=== PATIENT | female | born 1950 | race Caucasian/White ===

== ENCOUNTER 2016-04-02 13:22 | Emergency (ER) | payer MEDICARE ==
[~2016-04-02] VITALS: Ht 160 cm; Wt 114.0 kg
[~2016-04-02 13:22] MED LIST: FLUO20TA20 PO; LISI-357 PO; TYLE650T4 PO; WARF-20 PO; WARF1TAB PO; ZOCO10TA PO
[2016-04-02 13:26] VITALS: BP 151/84; PULSE 84; RESP 20; TEMP 98.6; O2SAT 95
[2016-04-02] MEDS ORDERED: FLUO1TAB3 PO (13:44)
[2016-04-02] MEDS ORDERED: SIMV10TA PO (13:44)
[2016-04-02] MEDS ORDERED: WARF-58 PO (13:44)
[2016-04-02] MEDS ORDERED: LISI-519 PO (13:44)
[2016-04-02] MEDS ORDERED: SODIUM CHLOR 0.9% 1000 ML INJ 1,000 ML IV ONE (14:15)
[2016-04-02] MEDS ORDERED: SODIUM CHLORIDE 0.9% FLUSH 5 ML FLUSH IVF PRN (14:15)
--- NOTE | 2016-04-02 14:18 | PD ---
HPI Chief Complaint: Cold / Flu Symptoms Time Seen by Provider: 13:59 Travel History International Travel<30 days: No Contact w/Intl Traveler<30days: No Traveled to known affect area: No History of Present Illness HPI Ms. Marie is a pleasant 66 year old female who presents to ER with c/o of cough/ congestion and overall "not feeling well" for the past week (5 days ago). Patient reports that all her symptoms began last week after her her passed. Reports that she had alot of family members come in from out of town for the [facility] service and reports that some of her family members were sick. Reports that alot of her family member had cough/congestion and patient thinks that someone must have gotten her sick. Reports no fever/chills. Reports no chest pain or sob. Reports that she has been coughing - reports cough as nonproductive. Reports "i just feel like my chest is congested." PFSH Past Medical History Arthritis: Yes Asthma: No Blood Disorders: No Anxiety: No Depression: Yes Heart Rhythm Problems: No Cancer: Yes (MELANOMA 2014, ENDOMETRIAL CANCER, COMPLETE HYSTERECTOMY 2008) Cardiovascular Problems: No High Cholesterol: No Chemotherapy: No Chest Pain: No Congestive Heart Failure: No COPD: No Cerebrovascular Accident: No Diabetes: No Diminished Hearing: No Endocrine: No Gastrointestinal Disorders: Yes GERD: No Glaucoma: No Genitourinary: Yes (HX OF UTI'S) Headaches: No Hepatitis: No Hiatal Hernia: Yes (HX OF, CAUSES NO PROBLEMS) Hypertension: No Immune Disorder: No Implanted Vascular Access Dvce: No Kidney Stones: No Medical other: Yes (LESIONS REMOVED FROM VULVA 2014) Musculoskeletal: Yes (ARTHRITIS) Neurologic: Yes (HX OF VERTIGO) Psychiatric: No Reproductive: No Respiratory: Yes (HX OF MASSIVE PULMONARY EMBOLISM 2000, RECURRED WHEN OFF COUMADIN 2013) Migraines: No Myocardial Infarction: No Radiation Therapy: No Renal Failure: No Seizures: No Sleep Apnea: No Thyroid Disease: Yes (HX OF HYPOTHYROID, NOT CURRENT) Ulcer: No Menopausal: Yes Dilation and Curettage (D&C): Yes (2001 2008) Past Surgical History Abdominal Surgery: Yes (UMBILICAL HERNIA REPAIR 1999) AICD: No Appendectomy: No Arteriovenous Shunt: No Body Medical Devices: PESARY Cardiac Surgery: No Cholecystectomy: No Ear Surgery: No Endocrine Surgery: No Eye Surgery: Yes (CATARACTS REMOVED 2013) Genitourinary Surgery: Yes (LESIONS REMOVED FROM VULVA MAR 2014) Gynecologic Surgery: Yes (TOTAL HYSTERECTOMY, D & C 2001; D&C 07/11) Hysterectomy: Yes Insulin Pump: No Joint Replacement: Yes (L HIP) Neurologic Surgery: No Oral Surgery: No Pacemaker: No Thoracic Surgery: No Other Surgery: Yes Social History Alcohol Use: No Tobacco Use: No Substance Use: No Allergies-Medications (Allergen,Severity, Reaction): Coded Allergies: No Known Allergies (Verified , 02/03/15) Reported Meds & Prescriptions Reported Meds & Active Scripts Active Reported Warfarin 3 Mg Tab 3.5 Mg PO DAILY Simvastatin 10 Mg Tab 10 Mg PO DAILY Lisinopril 5 Mg Tab 5 Mg PO DAILY Fluoxetine (Fluoxetine HCl) 20 Mg Tab 20 Mg PO DAILY Review of Systems General / Constitutional: No: Fever, Chills Eyes: No: Visual changes HENT: Positive: Rhinorrhea, No: Headaches, Sore Throat Cardiovascular: No: Chest Pain or Discomfort Respiratory: Positive: Cough, No: Shortness of Breath Gastrointestinal: No: Nausea, Vomiting, Diarrhea, Abdominal Pain Genitourinary: No: Dysuria Musculoskeletal: No: Pain Skin: No Rash Neurologic: No: Weakness Psychiatric: No: Depression Endocrine: No: Polydipsia Hematologic/Lymphatic: No: Easy Bruising Physical Exam Narrative GENERAL: nad, nontoxic SKIN: Warm and dry. HEAD: Atraumatic. Normocephalic. EYES: Pupils equal and round. . No injection or drainage. ENT: No nasal bleeding or discharge. Mucous membranes pink and moist. NECK: Trachea midline. No JVD. CARDIOVASCULAR: Regular rate and rhythm. No murmur appreciated. RESPIRATORY: No accessory muscle use. Clear to auscultation. Breath sounds equal bilaterally. GASTROINTESTINAL: Abdomen soft, non-tender, nondistended. Hepatic and splenic margins not palpable. MUSCULOSKELETAL: No obvious deformities. No clubbing. No cyanosis. No edema. NEUROLOGICAL: Awake and alert. Motor grossly within normal limits. Normal speech. PSYCHIATRIC: Appropriate mood and affect; insight and judgment normal. Data Data Last Documented VS Vital Signs Date Time Temp Pulse Resp B/P Pulse Ox O2 Delivery O2 Flow Rate FiO2 04/02/16 13:26 98.6 84 20 151/84 95 Orders Electrocardiogram (04/02/16 14:15) Complete Blood Count With Diff (04/02/16 14:15) Comprehensive Metabolic Panel (04/02/16 14:15) Influenzae A/B Antigen (04/02/16 14:15) Urinalysis - C+S If Indicated (04/02/16 14:15) Blood Culture (04/02/16 14:15) Chest, Pa & Lat (04/02/16 14:15) Ecg Monitoring (04/02/16 14:15) Iv Access Insert/Monitor (04/02/16 14:15) Oximetry (04/02/16 14:15) Sodium Chloride 0.9% Flush (Ns Flush) (04/02/16 14:15) Sodium Chlor 0.9% 1000 Ml Inj (Ns 1000 M (04/02/16 14:15) Prothrombin Time / Inr (Pt) (04/02/16 14:51) Act Partial Throm Time (Ptt) (04/02/16 14:51) Urine Culture (04/02/16 14:30) Labs Laboratory Tests Test 04/02/16 04/02/16 14:30 14:50 Urine Collection Type CLEAN CATCH Urine Color YELLOW Urine Turbidity CLEAR Urine pH 6.0 Urine Specific [place] 1.025 Urine Protein 30 mg/dL Urine Glucose (UA) NEG mg/dL Urine Ketones NEG mg/dL Urine Occult Blood SMALL Urine Nitrite POS Urine Bilirubin NEG Urine Leukocyte Esterase NEG Urine RBC 0-3 /hpf Urine WBC 9-14 /hpf Urine Squamous Epithelial 0-5 /hpf Cells Urine Bacteria FEW /hpf Microscopic Urinalysis Comment CULTURE INDICATED White Blood Count 3.8 TH/MM3 Red Blood Count 4.50 MIL/MM3 Hemoglobin 13.2 GM/DL Hematocrit 38.7 % Mean Corpuscular Volume 85.9 FL Mean Corpuscular Hemoglobin 29.3 PG Mean Corpuscular Hemoglobin 34.2 % Concent Red Cell Distribution Width 13.6 % Platelet Count 249 TH/MM3 Mean Platelet Volume 7.4 FL Neutrophils (%) (Auto) 40.7 % Lymphocytes (%) (Auto) 44.3 % Monocytes (%) (Auto) 13.0 % Eosinophils (%) (Auto) 0.6 % Basophils (%) (Auto) 1.4 % Neutrophils # (Auto) 1.5 TH/MM3 Lymphocytes # (Auto) 1.7 TH/MM3 Monocytes # (Auto) 0.5 TH/MM3 Eosinophils # (Auto) 0.0 TH/MM3 Basophils # (Auto) 0.1 TH/MM3 CBC Comment DIFF FINAL Differential Comment Prothrombin Time 20.7 SEC Prothromb Time International 1.8 RATIO Ratio Activated Partial 34.2 SEC Thromboplast Time Sodium Level 143 MEQ/L Potassium Level 3.9 MEQ/L Chloride Level 108 MEQ/L Carbon Dioxide Level 27.6 MEQ/L Anion Gap 7 MEQ/L Blood Urea Nitrogen 18 MG/DL Creatinine 0.68 MG/DL Estimat Glomerular Filtration 86 ML/MIN Rate Random Glucose 91 MG/DL Calcium Level 8.4 MG/DL Total Bilirubin 0.3 MG/DL Aspartate Amino Transf 34 U/L (AST/SGOT) Alanine Aminotransferase 18 U/L (ALT/SGPT) Alkaline Phosphatase 89 U/L Total Protein 7.2 GM/DL Albumin 3.1 GM/DL [facility] Medical Decision Making Medical Screen Exam Complete: Yes Emergency Medical Condition: Yes Interpretation(s) EKG that 1441: Normal sinus rhythm at 77 bpm, QT/QTc 402/431, no acute ST-T wave changes Differential Diagnosis Pneumonia, influenza, electrolyte abnormality, viral syndrome, acute bronchitis Narrative Course Patient is a 66-year-old female who presents to emergency room with complaints of not feeling well for the past 5 days. She reports that she has had increased cough and congestion with a nonproductive cough for the past 5 days. Patient with no fevers or chills. Patient denies chest pain or shortness of breath. Patient reports that she has been around sick family members as her last week. Reports "I probably got sick from them." Patient with no recent travels/trips. NO other c/o. ekg ordered iv placed, cbc, bmp, ua, influenza and blood cultures ordered. will continue to monitor patient Chest x-ray: Moderate stable degenerative changes in thoracic spine, no evidence of mass, infiltrate or effusion. UA positive for nitrites, 9-14 white blood cells, few bacteria - urine culture sent. We'll give patient a dose of Rocephin for treatment of UTI. Influenza A positive cbc: wbc: 3.8 hct: 38.7 hgb: 13.2 platelets: 249 cmp: sodium 143 potassium 3.9 chloride: 108 carbon dioxide: 27.6 bun: 18 cr: 0.68 Patient re-evaluated patient feeling much better. pt will follow up with all cultures from today pt will follow up with pcp and will return to ER as needed. pt's INR is 1.8 which is subtherapeutic, she will call her pcp about subtherapeutic INR Diagnosis Primary Impression: Influenza A Additional Impressions: Subtherapeutic international normalized ratio (INR) UTI (urinary tract infection) Qualified Code: N30.00 - Acute cystitis without hematuria Patient Instructions: General Instructions Additional Instructions: Please make sure you drink plenty of fluids Please follow-up with all cultures from today Please call your primary care doctor for earliest follow-up appointment. Please let your primary care doctor know that you have a subtherapeutic INR. Your INR today was 1.8 and this is NOT therapeutic Please return to the emergency room if symptoms progress or worsen. Med/Other Pt SpecificInfo: Prescription(s) given Scripts Ibuprofen 600 Mg [id number] Mg PO Q6H PRN (Pain/Inflammation) #40 TAB Ref 0 Prov:Marion Schwarz DO 04/02/16 Promethazine-Codeine Liq 6.25-10 Mg/5 Ml Syrp5 Ml PO Q6H PRN (COUGH AND/OR COLD SYMPTOMS) 10 Days Ref 0 Prov:Marion Schwarz DO 04/02/16 Benzonatate (Tessalon Perles)100 Mg Gbw720 Mg PO TID PRN (COUGH) #30 CAP Ref 0 Prov:Marion Schwarz DO 04/02/16 Nitrofurantoin Monohydrate Macrocrystals (Macrobid)100 Mg Bns487 Mg PO BID 10 Days Ref 0 Prov:Marion Schwarz DO 04/02/16 Disposition: 01 DISCHARGE HOME Condition: Stable Marion Schwarz DO Apr 02, 2016 14:18
--- NOTE | 2016-04-02 14:45 | RADHPO ---
EXAM DATE/TIME: 04/02/2016 14:31 [facility] COMPARISON: CHEST PA & LAT, March 12, 2014, 14:22. INDICATIONS : Cough, chest congestion MEDICAL HISTORY : None. SURGICAL HISTORY : None. ENCOUNTER: Initial ACUITY: 4 - 6 days PAIN SCORE: 0/10 LOCATION: Bilateral chest FINDINGS: PA and lateral views of the chest demonstrate the lungs to be symmetrically aerated without evidence of mass, infiltrate or effusion. The cardiomediastinal contours are unremarkable. Osseous structure s are intact. Moderate stable degenerative changes of the thoracic spine. CONCLUSION: No acute disease. No significant change has occurred. Mauricio Dwyer MD on April 02, 2016 at 14:43 Board Certified Radiologist. This report was verified electronically.
[2016-04-02 14:46] LABS: BLOOD, URINE SMALL (NEG); GLUCOSE,URINE NEG (NEG); KETONE, URINE NEG (NEG)
[2016-04-02 14:47] LABS: NITRITE,URINE POS (NEG)
[2016-04-02 14:48] LABS: METHOD OF COLLECTION CLEAN CATCH; URINE COLOR YELLOW (YELLW/STRAW)
[2016-04-02 14:52] LABS: RBC, URINE 0-3 /hpf (0-3)
[2016-04-02 14:53] LABS: BACTERIA, URINE FEW /hpf; COMMENT (UR) CULTURE INDICATED; CULTURE IF INDICATED CULTURE INDICATED; SQUAMOUS EPITHELIAL CELL URINE 0-5 /hpf (0-5)
[2016-04-02 15:09] LABS: AUTOMATED NEUTROPHIL # 1.5 TH/MM3 (1.8-7.7); BASOPHIL # 0.1 TH/MM3 (0-0.2); BASOPHIL % 1.4 % (0.0-2.0); EOSINOPHIL % 0.6 % (0.0-4.0); HEMATOCRIT 38.7 % (35.0-46.0); HEMO FLAGS DIFF FINAL; LYMPH % 44.3 % (9.0-44.0); LYMPHOCYTE # 1.7 TH/MM3 (1.0-4.8); MEAN CELL VOLUME 85.9 FL (80.0-100.0); MEAN CORPUSCULAR HEMOGLOBIN 29.3 PG (27.0-34.0); MEAN CORPUSCULAR HGB CONC 34.2 % (32.0-36.0); NEUT % 40.7 % (16.0-70.0); PLATELET COUNT 249 TH/MM3 (150-450); RED CELL DISTRIBUTION WIDTH 13.6 % (11.6-17.2); WHITE BLOOD COUNT 3.8 TH/MM3 (4.0-11.0)
[2016-04-02 15:16] LABS: CHLORIDE 108 MEQ/L (98-107); POTASSIUM 3.9 MEQ/L (3.5-5.1); SODIUM (NA) 143 MEQ/L (136-145)
[2016-04-02 15:21] LABS: ANION GAP 7 MEQ/L (5-15); APTT (PATIENT) 34.2 SEC (24.3-30.1); BICARBONATE 27.6 MEQ/L (21.0-32.0); BLOOD UREA NITROGEN 18 MG/DL (7-18); INTERNATIONAL NORMALIZED RATIO 1.8 RATIO; PROTHROMBIN TIME - PATIENT 20.7 SEC (9.8-11.6)
[2016-04-02 15:24] LABS: ALT (GPT) 18 U/L (10-53); AST (GOT) 34 U/L (15-37)
[2016-04-02 15:25] LABS: GLOMERULAR FILTRATION RATE 86 ML/MIN (>89)
[2016-04-02 15:26] LABS: TOTAL BILIRUBIN ADULT 0.3 MG/DL (0.2-1.0)
[2016-04-02 15:27] LABS: ALKALINE PHOSPHATASE 89 U/L (45-117)
[2016-04-02] MEDS ORDERED: IBUP-232 PO (15:45)
[2016-04-02] MEDS ORDERED: BENZ100 PO (15:45)
[2016-04-02] MEDS ORDERED: PROM6.256 PO (15:45)
[2016-04-02] MEDS ORDERED: MACR100C2 PO (15:45)
[2016-04-02 16:05] VITALS: BP 124/66; PULSE 74; RESP 18; O2SAT 94
--- NOTE | 2016-04-02 17:55 | EKG ---
Date Performed: 04/02/2016 Time Performed: 14:41:10 PTAGE: 66 years EKG: Sinus rhythm Normal ECG PREVIOUS TRACING : 03/12/2014 13.38 No significant change from previous tracing noted. DOCTOR: Norris Vargas Interpretating Date/Time 04/02/2016 17:53:20
== END 2016-04-02 17:05 | disposition home or self-care (01) ==
LOC: PHED 13:22
DX: J09.X2 Influenza due to identified novel influenza A virus with other respiratory manifestations (principal); N30.00 Acute cystitis without hematuria; B96.1 Klebsiella pneumoniae [K. pneumoniae] as the cause of diseases classified elsewhere; Z79.01 Long term (current) use of anticoagulants; Z86.711 Personal history of pulmonary embolism; Z85.42 Personal history of malignant neoplasm of other parts of uterus; Z85.820 Personal history of malignant melanoma of skin; Z79.899 Other long term (current) drug therapy
CPT/HCPCS: 71020; 80053; 81001; 85025; 85610; 85730; 87040; 87077; 87086; 87186; 87804; 93005; 96360; 99284; J7030

== ENCOUNTER → 2017-07-06 | Outpatient (CLI) | payer MEDICARE ==
[~2017-07-06] MED LIST changes: +BENZ100 PO; +CARD180C5 PO; +COUM4TAB PO; +ENOX100P SQ; +FLUO1TAB3 PO; -FLUO20TA20 PO; +IBUP-232 PO; -LISI-357 PO; +LISI-519 PO; +MACR100C2 PO; +MAPA500T PO; +METF1000 PO; +NP T30TA PO; +PROM6.256 PO; +SIMV10TA PO; -TYLE650T4 PO; -WARF-20 PO; +WARF-58 PO; -WARF1TAB PO; -ZOCO10TA PO
[2017-07-06 11:10] LABS: HEMATOCRIT 38.3 % (35.0-46.0); MEAN CELL VOLUME 86.3 FL (80.0-100.0); MEAN CORPUSCULAR HEMOGLOBIN 29.2 PG (27.0-34.0); MEAN CORPUSCULAR HGB CONC 33.9 % (32.0-36.0); MEAN PLATELET VOLUME 7.3 FL (7.0-11.0); PLATELET COUNT 332 TH/MM3 (150-450); RED BLOOD COUNT 4.43 MIL/MM3 (4.00-5.30); WHITE BLOOD COUNT 7.1 TH/MM3 (4.0-11.0)
[2017-07-06 11:24] LABS: PROTHROMBIN TIME - PATIENT 20.6 SEC (9.8-11.6)
[2017-07-06 11:34] LABS: BICARBONATE 26.5 MEQ/L (21.0-32.0); CALCIUM 9.1 MG/DL (8.5-10.1); CREATININE 0.67 MG/DL (0.50-1.00)
--- NOTE | 2017-07-06 18:44 | EKG ---
Date Performed: 07/06/2017 Time Performed: 10:53:23 PTAGE: 67 years EKG: Sinus rhythm NORMAL ECG PREVIOUS TRACING : 04/02/2016 14.41 DOCTOR: Juanito Campos Interpretating Date/Time 07/06/2017 16:39:27
== END ==
LOC: CPRE 10:24
PROVIDERS: ATTEND Internal Medicine
DX: Z01.810 Encounter for preprocedural cardiovascular examination (principal); Z01.812 Encounter for preprocedural laboratory examination; R91.1 Solitary pulmonary nodule
CPT/HCPCS: 36415; 80048; 85027; 85610; 85730; 93005

== ENCOUNTER → 2017-07-10 | Outpatient (CLI) | payer MEDICARE ==
[~2017-07-10] MED LIST changes: -BENZ100 PO; -IBUP-232 PO; -MACR100C2 PO; -PROM6.256 PO
[2017-07-10 11:52] LABS: INTERNATIONAL NORMALIZED RATIO 1.1 RATIO; PROTHROMBIN TIME - PATIENT 11.2 SEC (9.8-11.6)
== END ==
LOC: CLAB 11:19
PROVIDERS: ATTEND Internal Medicine
DX: R91.1 Solitary pulmonary nodule (principal)
CPT/HCPCS: 36415; 85610; 85730

== ENCOUNTER 2017-07-17 10:40 | Inpatient (IN) | payer MEDICARE ==
--- NOTE | 2017-07-05 08:28 | MB ---
cc: Leonor Ireland MD,Kyler Cowart MD, DO DATE: 07/10/2017 HISTORY OF PRESENT ILLNESS: Ms. Marie is a 67-year-old white female with a history of melanoma on her left arm in 2014. She had no other associated therapy but has been monitored carefully by Dr. Mathews. Recently has been feeling a little bit of discomfort in her anterior chest on the right, a generalized fatigue, loss of appetite and about a 5- to 7-pound weight loss. She was also complaining of some instability of gait and tremulousness, although no headache. She had a CT of her head, which was reported as negative by the patient--I do not have that actual report and then a CT of her chest which revealed multiple bilateral pulmonary nodules, the largest was about 1 cm, and in addition to that, she had bulky right hilar adenopathy characteristic of metastatic disease. She has had a minimal cough, no purulent sputum, no hemoptysis. Not particularly short of breath. She was a former smoker of about 20 pack-years; quit smoking though in her 40's thirty years ago. She has also had a history of uterine cancer treated by hysterectomy in 2007 and a vulvar cancer in 2015, also treated surgically with no associated chemotherapy or radiation. She had a pulmonary embolism and a right lower extremity DVT in 2000. She was treated for about 6 months with anticoagulants. She did very well with no recurrence until 2013 when she developed a DVT again in the right leg after a colonoscopy. She has been on warfarin since then with no recurrence. ADDITIONAL PAST HISTORY: Hypothyroidism, type 2 diabetes, hernia repair. No cardiovascular history. No prior history of COPD, emphysema or asthma. ALLERGIES: NONE KNOWN. MEDICATIONS: She has been on Cipro recently for a UTI. She is on lisinopril, simvastatin, Prozac, metformin, warfarin and a thyroid replacement. FAMILY HISTORY: Father of pneumonia in his 80s. Mother had a heart attack at 77. Lost a sister of unclear etiology, possible pulmonary embolism. Another sister alive at 77 and a son who is in good health. SOCIAL HISTORY: She is for 1 year. Ran a nursery school for many years, now retired. Smoking noted. No alcohol use. She has 2 dogs at home. Lives alone, manages her own affairs. REVIEW OF SYSTEMS: Weight is down about 5 pounds. She has had cataracts removed. No anginal chest pain or significant chronic edema. Appetite has been poor. No significant musculoskeletal complaints. PHYSICAL EXAMINATION: VITAL SIGNS: Blood pressure 130/70, pulse 87, temperature 98, RR 18, saturation 96% on room air. HEENT: Sclerae are anicteric. Pharynx is clear. NECK: Neck veins are flat. No adenopathy in the neck or supraclavicular region. CHEST: Clear. No wheezes, rales or congestion. HEART: Regular rhythm. No harsh murmur. ABDOMEN: Obese but soft. No pitting edema or cyanosis. Scan is reviewed with Ellie Marie and I have pointed out the areas of lymph node enlargement. I have suggested she proceed with a diagnostic bronchoscopy with ultrasound guidance to sample these lymph nodes. The small nodules within the lung are probably not accessible. We have reviewed the procedure in simple terms; discussed potential for complications including, although not limited to, anesthetic risks, bleeding or pneumothorax. We have also discussed the possibility that the procedure will not provide a definitive diagnosis. She is agreeable to proceed. We are scheduling this as an outpatient and I will hold her Coumadin prior to the procedure with appropriate laboratories. Further diagnostic and/or therapeutic intervention will depend on the results of this initial diagnostic study. R. Milad Ireland MD RSW/AMALIA/ , 12:54 PM , 01:22 PM
[~2017-07-17] VITALS: Ht 160 cm; Wt 106.1 kg
[~2017-07-17 10:40] MED LIST changes: -CARD180C5 PO; -COUM4TAB PO
[2017-07-17] MEDS ORDERED: DO NOT ADM ANY ANTICOAGULANT DRUGS PRN ×2 (11:30→17:00)
[2017-07-17] MEDS ORDERED: METOPROLOL TARTRATE 25 MG TAB PO PRN (11:30)
[2017-07-17] MEDS ORDERED: SODIUM CHLORID 0.9% 500 ML IV PRN (11:30)
[2017-07-17] MEDS ORDERED: POVIDONE IODINE 5% (ANTISEPSIS KIT) 4 APPLICATIONS EACH NARE PRN (11:30)
[2017-07-17] MEDS ORDERED: CHLORHEXIDINE GLUCONATE 2 % 1 PACK (2 CLOTHS) TOPICAL PRN (11:30)
[2017-07-17] MEDS ORDERED: LACTATED RINGER'S 1000 ML IV PRN (11:30)
[2017-07-17] MEDS ORDERED: INSULIN HUMAN REGULAR 1,000 UNITS/10 ML VIAL SQ PRN (11:30)
[2017-07-17] MEDS ORDERED: RESP: LIDOCAINE HCL 4% PF 5 ML NEB ONE (13:05)
[2017-07-17] MEDS ORDERED: RESP: ALBUTEROL CONC 2.5 MG/0.5 ML NEB ONE (13:05)
[2017-07-17] MEDS ORDERED: FAMOTIDINE 20 MG/2 ML VIAL ONE (13:59)
[2017-07-17] MEDS ORDERED: SUGAMMADEX SODIUM 200 MG/2 ML VIAL IV PUSH ONE (14:57)
[2017-07-17] MEDS ORDERED: EPINEPHrine HCL (1:1000) 1 MG/ML VIAL E-TRACHE ONE (15:45)
[2017-07-17] MEDS ORDERED: RESP: IPRATROPIUM 0.5 MG/2.5 ML NEB NEB PRN ×2 (16:00→16:45)
[2017-07-17] MEDS ORDERED: *LABETALOL HCL 100 MG/20 ML VIAL PERIprocedural Use ONLY ONE (16:17)
[2017-07-17] MEDS ORDERED: *PROMETHAZINE 25 MG/ML VIAL PERIprocedural use ONLY ONE (16:18)
--- NOTE | 2017-07-17 16:40 | MR ---
cc: Leonor Ireland MD DATE: 07/17/2017 PROCEDURE PERFORMED: Bronchoscopy. INDICATIONS FOR PROCEDURE: Mediastinal adenopathy with a history of melanoma. After informed consent was obtained, the patient underwent diagnostic bronchoscopy with general anesthesia. Initial examination of the airways revealed a normal mid to lower trachea. Examination of the left main stem bronchus, left upper and lower lobes was normal. Examination of the right main stem bronchus was normal down to the takeoff of the right upper lobe, but then there was some narrowing from extrinsic compression at that point. The right middle lobe was patent. Further examination in the right lower lobe, medial basilar segment revealed what appeared to be an endobronchial tumor extruding into the airway. This area was washed extensively and submitted for cytology and culture. Needle aspiration was then obtained from the lesion twice and there was fairly brisk bleeding after that. The area was lavaged with cold saline and a dilute adrenaline solution and the bleeding was controlled. Following this, utilizing endobronchial ultrasound, the mediastinal mass was clearly identified. Multiple needle aspirations were obtained for cytology. Minimal bleeding noted. At the end of the procedure, there was no active bleeding. Specimens submitted from the station VII lymph node region where the mass was identified on CT for cytology. Washings and 2 needle aspirations of the right lower lobe were also submitted for cytology. Cultures were also obtained. She tolerated the procedure well. Near the end of the procedure. She developed a short 1 or 2 minute run of atrial fibrillation. O2 saturations and blood pressure was normal. Post-extubation again with normal saturations. She had a rapid atrial arrhythmia with a heart rate of about 160-180. She received esmolol from the anesthesiologist and the rate was controlled. She converted to sinus. A chest x-ray and EKG are ordered for the recovery area. Depending on the results of these, we will determine whether she can be discharged this evening or has to remain overnight for observation. I also spoke to the foundry technician automobile club information clerk. Recommended that we monitor her here in Recovery and if the rhythm is stable, administer 120 mg of slow-release diltiazem, place her on that daily and consider followup for evaluation of arrhythmia. Further diagnostic and/or therapeutic intervention will depend on her period of recovery. R. MD LITTLE Wilkins/TRINH , 04:08 PM , 04:39 PM
[2017-07-17] MEDS ORDERED: *ONDANSETRON 4 MG VIAL PERIprocedural Use ONLY ONE (16:44)
[2017-07-17] MEDS ORDERED: METOPROLOL TARTRATE 5 MG/5 ML VIAL IV PUSH ONE ×2 (16:45→17:30)
--- NOTE | 2017-07-17 16:48 | RADRPT ---
EXAM DATE/TIME: 07/17/2017 16:16 [facility] COMPARISON: No previous studies available for comparison. INDICATIONS : Right post bronch, right lung biopsy. MEDICAL HISTORY : None. SURGICAL HISTORY : None. ENCOUNTER: Initial ACUITY: 1 day PAIN SCORE: 0/10 LOCATION: Bilateral chest FINDINGS: There is an approximate 6 cm right perihilar mass with mild interstitial and alveolar opacities in th e right lower lobe. No significant pneumothorax. Cardiac size within normal limits. Bony thorax is in tact. CONCLUSION: 1. No significant pneumothorax status post bronchoscopy. 2. Approximately 6 cm right perihilar lung mass. Mikey Avila MD on July 17, 2017 at 16:44 Board Certified Radiologist. This report was verified electronically.
[2017-07-17] MEDS ORDERED: METOPROLOL TARTRATE 5 MG/5 ML VIAL ONE (16:52)
[2017-07-17] MEDS ORDERED: METOPROLOL TARTRATE 5 MG/5 ML VIAL IV PUSH PRN (17:30)
[2017-07-17] MEDS ORDERED: DILTIAZEM HCL 60 MG TAB PO ONE (17:30)
[2017-07-17] MEDS ORDERED: BISACODYL 10 MG SUPP RECTAL PRN (17:45)
[2017-07-17] MEDS ORDERED: SENNOSIDES 8.6 MG TAB PO PRN (17:45)
[2017-07-17] MEDS ORDERED: NALOXONE HCL 0.4 MG/ML AMP IV PUSH PRN (17:45)
[2017-07-17] MEDS ORDERED: ONDANSETRON HCL 4 MG/2 ML VIAL IVP PRN (17:45)
[2017-07-17] MEDS ORDERED: ACETAMINOPHEN 325 MG TAB PO PRN (17:45)
[2017-07-17] MEDS ORDERED: SODIUM CHLORID 0.9% 500 ML INJ 500 ML IV ONE (17:45)
[2017-07-17] MEDS ORDERED: MAGNESIUM HYDROXIDE SUSP 30 ML CUP PO PRN (17:45)
[2017-07-17] MEDS ORDERED: LACTULOSE SYRUP 20 GM/30 ML CUP PO PRN (17:45)
--- NOTE | 2017-07-17 17:55 | HHI.HP ---
[facility] Service [facility]ists Primary Care Physician Kyler Sheldon, Admission Diagnosis Atrial fibrillation with RVR Diagnoses: (1) Atrial fibrillation with RVR (2) Diabetes mellitus (3) Hypothyroidism (4) History of pulmonary embolus (PE) Chief Complaint: Lung mass Travel History International Travel<30 Days: No Contact w/Intl Traveler <30 Da: No History of Present Illness The patient is a 67-year-old female who was brought to the hospital for bronchoscopy, done by Dr. Ireland today. Patient developed atrial fibrillation with RVR during the procedure. She was given esmolol and return to sinus rhythm. She [facility] with [facility]. Hospitalist was requested to admit the patient. Dr. Britt, cardiology, was also contacted by the insolvency practitioner. The patient is seen in PACU. She denies chest pain. Does have some shortness of breath, which she states has been going on for the past week or so. She reports nausea, but no vomiting. Review of Systems Constitutional: DENIES: Fever, Chills, Night Sweats Eyes: DENIES: Blurred vision, Vision loss Ears, nose, mouth, throat: DENIES: Hearing loss Respiratory: COMPLAINS OF: Shortness of breath, DENIES: Cough, Wheezing, Sputum production Cardiovascular: DENIES: Chest pain, Palpitations, Dyspnea on Exertion, Lower Extremity Edema Gastrointestinal: COMPLAINS OF: Nausea, DENIES: Abdominal pain, Constipation, Diarrhea, Vomiting Genitourinary: DENIES: Urinary frequency, Urinary incontinence, Urgency, Hematuria, Dysuria, Nocturia Musculoskeletal: DENIES: Joint pain, Muscle aches Integumentary: DENIES: Pruritus, Rash Hematologic/lymphatic: DENIES: Bruising Neurologic: DENIES: Headache Past Family Social History Past Medical History Diabetes mellitus Hypothyroidism History of PE History of melanoma Past Surgical History Hysterectomy Surgical excision of vulvar cancer Reported Medications Lisinopril Simvastatin Prozac Metformin Warfarin Synthroid Allergies: Coded Allergies: No Known Allergies (Verified Allergy, Unknown, 07/17/17) Family History Heart disease Social History Patient quit smoking 30 years ago. Denies alcohol or illicit drug use. Physical Exam Vital Signs Vital Signs Date Time Temp Pulse Resp B/P (MAP) Pulse Ox O2 Delivery O2 Flow Rate FiO2 07/17/17 16:10 97.5 133 24 157/82 (107) 93 Nasal Cannula 4 07/17/17 15:45 98 07/17/17 11:26 Room Air Physical Exam GENERAL: Well-nourished, well-developed female in no acute distress. HEENT: Normocephalic, atraumatic. Pupils equal, round and reactive. Extraocular movements intact. No scleral icterus. No injection or drainage. Oropharynx is clear. Mucous membranes are dry. CARDIOVASCULAR: Tachycardic, irregular. RESPIRATORY: Clear to auscultation. No wheezes, rales, or rhonchi. Breathing is non-labored. GASTROINTESTINAL: Abdomen soft, non-tender, nondistended. EXTREMITIES: No lower extremity edema. No calf tenderness. PSYCH: Alert and oriented x 3. Laboratory Date/Time Source Procedure Growth Status 07/17/17 14:51 Bronchial Washings Right Lower Lobe Fungal Smear Pending Received 07/17/17 14:51 Bronchial Washings Right Lower Lobe Fungal Culture Pending Received Imaging Last Impressions Chest X-Ray 07/17/17 0000 Signed Impressions: Service Date/Time: Monday, July 17, 2017 16:16 - CONCLUSION: 1. No significant pneumothorax status post bronchoscopy. 2. Approximately 6 cm right perihilar lung mass. MD Wen Stern VTE Risk Assessment Wen VTE Risk Assessment: Mod/High Risk (score >= 2) VTE Pharm Contraindication: High risk for bleeding Caprini Risk Assessment Model Point Value = 1 Point Value = 2 Point Value = 3 Point Value = 5 Age 41-60 Minor surgery BMI > 25 kg/m2 Swollen legs Varicose veins or History of unexplained or recurrent spontaneous Oral contraceptives or hormone replacement Sepsis (< 1 month) Serious lung disease, including pneumonia (< 1 month) Abnormal pulmonary function Acute myocardial infarction Congestive heart failure (< 1 month) History of inflammatory bowel disease Medical patient at bed rest Age 61-74 Arthroscopic surgery Major open surgery (> 45 min) Laparoscopic surgery (> 45 min) Malignancy Confined to bed (> 72 hours) Immobilizing plaster cast Central venous access Age >= 75 History of VTE Family history of VTE Factor V Leiden Prothrombin [id number] Lupus anticoagulant Anticardiolipin antibodies Elevated serum homocysteine Heparin-induced thrombocytopenia Other congenital or acquired thrombophilia Stroke (< 1 month) Elective arthroplasty Hip, pelvis, or leg fracture Acute spinal cord injury (< 1 month) Prophylaxis Regimen Total Risk Factor Score Risk Level Prophylaxis Regimen 0-1 Low Early ambulation 2 Moderate Order ONE of the following: *Sequential Compression Device (SCD) *Heparin 5000 units SQ BID 3-4 Higher Order ONE of the following medications: *Heparin 5000 units SQ TID *Enoxaparin/Lovenox 40 mg SQ daily (WT < 150 kg, CrCl > 30 mL/min) *Enoxaparin/Lovenox 30 mg SQ daily (WT < 150 kg, CrCl > 10-29 mL/min) *Enoxaparin/Lovenox 30 mg SQ BID (WT < 150 kg, CrCl > 30 mL/min) AND/OR *Sequential Compression Device (SCD) 5 or more Highest Order ONE of the following medications: *Heparin 5000 units SQ TID (Preferred with Epidurals) *Enoxaparin/Lovenox 40 mg SQ daily (WT < 150 kg, CrCl > 30 mL/min) *Enoxaparin/Lovenox 30 mg SQ daily (WT < 150 kg, CrCl > 10-29 mL/min) *Enoxaparin/Lovenox 30 mg SQ BID (WT < 150 kg, CrCl > 30 mL/min) AND *Sequential Compression Device (SCD) Assessment and Plan Assessment and Plan 1. Lung mass: Status post bronchoscopy with multiple biopsies taken. Pathology pending. Management per pulmonology. 2. Atrial fibrillation with RVR: Patient's heart rate has been in the 120s. She was given 2.5 mg of IV metoprolol, which did not significantly improve her heart rate, but it did cause hypotension. Cardiology consult requested. Diltiazem ordered. 3. Dehydration: Patient appears clinically dry. Given 500 mL bolus of normal saline. Continue IV fluids. 4. Diabetes mellitus: Hold metformin. Monitor Accu-Cheks and cover with sliding scale insulin. 5. History of PE: Patient has been on Coumadin, which was held preprocedure. Per pulmonology, he would like to keep her off of anticoagulation for at least 24 hours due to the biopsies that were taken. 6. Hypothyroidism: Continue [place] Thyroid. 7. DVT prophylaxis: SCDs, CYNDEE hose. Avoid chemical prophylaxis until cleared by pulmonology. Jorge Vega MD July 17, 2017 17:55
[2017-07-17] MEDS ORDERED: GLUCAGON 1 MG/ML VIAL OTHER PRN (18:00)
[2017-07-17] MEDS ORDERED: DEXTROSE 50% IN WATER 50 ML VIAL(D50) IV PUSH PRN (18:00)
[2017-07-17] MEDS ORDERED: DILTIAZEM HCL 60 MG TAB PO SCH (18:00)
--- NOTE | 2017-07-17 18:25 | MB ---
cc: Nj Britt MD, R Steven MD Doughney,Kyler Cowart MD, DO DATE: 07/17/2017 REASON FOR CONSULTATION: Tachycardia and atrial fibrillation, status post bronchoscopy. HISTORY OF PRESENT ILLNESS: Ms. Marie is a 67-year-old white female with no past cardiac history who was in the outpatient unit today and is recently status post bronchoscopy and lung biopsy by Dr. Ireland. During that procedure it was seen the patient had some tachycardia consistent with rapid atrial fibrillation and was treated with esmolol intravenously. That was initially successful and then she was transferred to the postanesthesia unit where she remained in atrial fibrillation with rapid ventricular responses at times. Her vital signs were otherwise stable and her blood pressure was good. She did receive 2.5 mg of IV Lopressor prior to my arrival. She is sitting up in bed, awake and drowsy, but able to answer questioning. She denies any chest discomfort or shortness of breath at this time. She tells me that she has been occasionally having some palpitations recently. She has also noted some right-sided chest discomfort recently, which she felt was due to her underlying lung mass that she is undergoing workup for. She says she has never had any exertional chest discomfort or dyspnea. PAST MEDICAL HISTORY: Significant for melanoma of the left arm removed in 2014. She has been followed by Dr. Mathews. Recently, she was found to have a 5-7 pound weight loss and multiple bilateral pulmonary nodules on a CT examination. She has had longstanding hypertension and she has been treated for a prior DVT and pulmonary embolus. Initially it was many years ago, around 2004, but she had a subsequent DVT in 2013 and was placed back on warfarin anticoagulation indefinitely and has been on that up until a few days ago for this procedure. OTHER PAST HISTORY: Includes hypothyroidism, type 2 diabetes. Denies history of myocardial infarction, stroke, thyroid, liver or kidney disease. PAST SURGICAL HISTORY: 1. Hernia repair. 2. Recent bronchoscopy. 3. Removal of the melanoma from her left arm. MEDICATIONS: 1. Recently on Cipro for a UTI. 2. She is taking Lisinopril. 3. Simvastatin. 4. Prozac. 5. Metformin. 6. Warfarin. 7. Thyroid. FAMILY HISTORY: Father of pneumonia in his 80s. Mother had a heart attack at age 77 One sister of uncertain causes possible pulmonary embolus and another sister at 77. SOCIAL HISTORY: The patient is for 1 year. She is a retired nursery lower school spanish teacher. Remote tobacco use. No alcohol use. Lives alone. Does no regular exercise. REVIEW OF SYSTEMS: Recent 5-pound weight loss. Denies lightheadedness or syncope. Denies exertional chest discomfort or dyspnea. Denies fevers, chills, night sweats, nausea, vomiting, diarrhea. Denies any bleeding disorders. Otherwise, except for that mentioned in the HPI, her complete 12-point review of systems is otherwise negative. PHYSICAL EXAMINATION: GENERAL: Elderly, overweight white female sitting up in bed in the Postanesthesia Unit in no distress. Has had mild nausea earlier. VITAL SIGNS: Blood pressure is 110/70, heart rate 124 and irregular, respiratory rate 18. Temperature is 97.5, oxygen saturations 93% on 4 liters nasal cannula. HEENT: Head is normocephalic and atraumatic. Pupils equal, round, reactive to light. Sclerae are anicteric. Extraocular movements intact. NECK: Supple. There is no adenopathy. There is no jugular venous distention at 90 degrees. Carotid upstrokes are normal. No bruits. Thyroid exam was normal. LUNGS: Clear. HEART: PMI is not displaced. S1, S2 are rapid and irregular. I hear no murmurs, gallops, clicks or rubs at this time. ABDOMEN: Bowel sounds present. Soft, nontender. No hepatosplenomegaly, no masses or bruits. EXTREMITIES: Reveal no cyanosis, clubbing, or edema. Perfusion is adequate in the upper and lower extremities. There are no femoral bruits. NEUROLOGIC: Exam is nonfocal. LABORATORY DATA: There is an EKG available from today at 16:37 showing atrial flutter showing with a rapid ventricular response of 126 beats per minute. An EKG available prior to that, from preadmission from 07/06/2017 did show sinus rhythm and was within normal limits. LABORATORY DATA: From July preop 07/06/2017: CBC: White count 7.1, hemoglobin 13.0, hematocrit 38.3, platelet count 332,000. INR 1.1 from 07/10/2017. From 07/06/2017, electrolytes are normal with a potassium of 4.3, BUN 12, creatinine 0.67. Glucose 91, calcium 9.1, magnesium 1.7, AST 34. TSH is 0.107. IMPRESSION: 1. Acute onset of atrial fibrillation with a rapid ventricular response, status post bronchoscopy. 2. Hypertensive heart disease. 3. Lung nodules undergoing workup. 4. History of melanoma. 5. Hypothyroidism on replacement. 6. Hypercholesterolemia on statin therapy. 7. Diabetes mellitus type 2. RECOMMENDATIONS: Currently intravenous diltiazem is not available on formulary due to a national shortage. She will be given intravenous Lopressor 5 mg boluses as needed for heart rate control. She is currently still n.p.o. post-procedurally. When she is able to take p.o., I will start her on Cardizem initially with a 60 mg dose and then 60 mg q. 6 hours. We will hold off on rhythm management at this point and try and achieve rate control. Perhaps she will convert on her own. Labs including a CBC, basic metabolic profile and a magnesium level have been drawn STAT. She is being placed on telemetry for observation overnight. I discussed the case in detail with Dr. Milad Ireland, the patient and nursing staff. Thank you for allowing me to participate in the care of this patient. MD SAVANAH Arvizu/SB , 05:43 PM , 06:24 PM ANGELA
[2017-07-17 19:00] VITALS: BP 103/53; PULSE 65; TEMP 98; O2SAT 97
[2017-07-17] MEDS ORDERED: NS + KCL 20 MEQ INJ 1,000 ML IV SCH (19:00)
--- NOTE | 2017-07-17 19:14 | RADRPT ---
EXAM DATE/TIME: 07/17/2017 18:44 [facility] COMPARISON: CHEST SINGLE AP, July 17, 2017, 16:16. INDICATIONS : Mediastianal mass;biopsied today. RADIATION DOSE: 9.59 CTDIvol (mGy) MEDICAL HISTORY : Hypertension. Carcinoma, not otherwise specified. Deep venous thrombosis. SURGICAL HISTORY : None. ENCOUNTER: Initial ACUITY: 1 day PAIN SCALE: 0/10 LOCATION: Bilateral chest TECHNIQUE: Volumetric scanning of the chest was performed. Using automated exposure control and adjustment of t he mA and/or kV according to patient size, radiation dose was kept as low as reasonably achievable to obtain optimal diagnostic quality images. DICOM format image data is available electronically for r eview and comparison. Follow-up recommendations for detected pulmonary nodules are based at a minimum on nodule size and pa tient risk factors according to Fleischner Society Guidelines. FINDINGS: There is a greater than 8 cm right hilar/infrahilar mass with contiguous involvement of the middle me diastinum, extending into the subcarinal region. There are bilateral parenchymal lung nodules and mod erate nodular infiltrate at the right lung base posteriorly. Mild nodular pleural thickening is prese nt in the bases bilaterally. There is a moderate sized hiatal hernia present. In the upper abdomen, a fatty density left adrenal mass is incompletely seen. There is a low density lesion in the right lobe of the liver measuring about 17 mm in diameter CONCLUSION: Right hilar/infrahilar mass with contiguous mediastinal involvement. Metastatic disease in the chest bilaterally and in the liver. No evident complication of today's biopsy Mak Ward MD on July 17, 2017 at 19:05 Board Certified Radiologist. This report was verified electronically.
[2017-07-17 20:00] VITALS: PULSE 62
[2017-07-17] MEDS: DOCUSATE SODIUM 50 MG/SENNA 8.6 MG TAB PO SCH (20:59)
[2017-07-17 21:00] VITALS: PULSE 64
[2017-07-17] MEDS: INSULIN ASPART SUPPLEMENTAL SCALE SQ SCH (21:00)
[2017-07-17 21:11] LABS: HEMATOCRIT 35.4 % (35.0-46.0); HEMOGLOBIN 11.6 GM/DL (11.6-15.3); MEAN CORPUSCULAR HEMOGLOBIN 28.9 PG (27.0-34.0); MEAN CORPUSCULAR HGB CONC 32.9 % (32.0-36.0); MEAN PLATELET VOLUME 7.3 FL (7.0-11.0); PLATELET COUNT 244 TH/MM3 (150-450); RED BLOOD COUNT 4.02 MIL/MM3 (4.00-5.30); RED CELL DISTRIBUTION WIDTH 15.4 % (11.6-17.2); WHITE BLOOD COUNT 12.8 TH/MM3 (4.0-11.0)
[2017-07-17 21:35] LABS: BICARBONATE 22.8 MEQ/L (21.0-32.0); CREATININE 0.65 MG/DL (0.50-1.00)
[2017-07-17 22:00] VITALS: PULSE 56
[2017-07-17 23:00] VITALS: PULSE 52
[2017-07-18] VITALS (22 sets, daily range): BP systolic 96–121; BP diastolic 51–58; PULSE 55–82; RESP 18; TEMP 98–98.4; O2SAT 91–97
[2017-07-18 04:55] LABS: AUTOMATED NEUTROPHIL # 5.7 TH/MM3 (1.8-7.7); BASOPHIL % 0.5 % (0.0-2.0); EOSINOPHIL # 0.1 TH/MM3 (0-0.4); EOSINOPHIL % 0.8 % (0.0-4.0); HEMATOCRIT 33.3 % (35.0-46.0); HEMOGLOBIN 11.2 GM/DL (11.6-15.3); LYMPH % 17.7 % (9.0-44.0); LYMPHOCYTE # 1.4 TH/MM3 (1.0-4.8); MEAN CORPUSCULAR HEMOGLOBIN 29.2 PG (27.0-34.0); MEAN CORPUSCULAR HGB CONC 33.6 % (32.0-36.0); MEAN PLATELET VOLUME 7.1 FL (7.0-11.0); MONO % 8.5 % (0.0-8.0); MONOCYTE # 0.7 TH/MM3 (0-0.9); NEUT % 72.5 % (16.0-70.0); PLATELET COUNT 276 TH/MM3 (150-450); RED BLOOD COUNT 3.83 MIL/MM3 (4.00-5.30); RED CELL DISTRIBUTION WIDTH 15.1 % (11.6-17.2); WHITE BLOOD COUNT 7.9 TH/MM3 (4.0-11.0)
[2017-07-18 05:23] LABS: BICARBONATE 25.4 MEQ/L (21.0-32.0); CALCIUM 8.2 MG/DL (8.5-10.1); CREATININE 0.61 MG/DL (0.50-1.00)
[2017-07-18] MEDS ORDERED: DILTIAZEM HCL 30 MG TAB PO ONE (06:45)
--- NOTE | 2017-07-18 06:49 | PD.CARD.PN ---
Subjective Subjective Remarks Had a good night. Denies CP or SOB. Converted to NSR overnight. Objective Medications Current Medications Medications (Trade) Dose Ordered Sig/Delores Route Start Time Stop Time Status Last Admin Sodium Chloride 500 ml @ 30 mls/hr [id number] PRN IV 07/17/17 11:30 07/20/17 11:29 (Lopressor) 25 mg CERTIFIED PROSTHETIST/ORTHOTIST PRN PO 07/17/17 11:30 07/20/17 11:29 (Betadine 5% Antisepsis Kit) 1 applic CERTIFIED PROSTHETIST/ORTHOTIST PRN EACH NARE 07/17/17 11:30 07/20/17 11:29 (Chlorhexidine 2% Cloth) 3 pack CERTIFIED PROSTHETIST/ORTHOTIST PRN TOPICAL 07/17/17 11:30 07/20/17 11:29 (NovoLIN R INJ) See Protocol Table ... CERTIFIED PROSTHETIST/ORTHOTIST PRN SQ 07/17/17 11:30 07/20/17 11:29 (Atrovent Neb) 0.5 mg UNSCH X1 PRN NEB 07/17/17 16:00 07/18/17 15:59 (Atrovent Neb) 0.5 mg UNSCH X1 PRN NEB 07/17/17 16:45 07/18/17 16:44 ([facility] Nursing Information) ALL NURSING DEPARTME... UNSCH PRN .XX 07/17/17 17:00 07/18/17 16:59 (Lopressor Inj) 5 mg Q1H PRN IV PUSH 07/17/17 17:30 (Tylenol) 650 mg Q4H PRN PO 07/17/17 17:45 (Zofran Inj) 4 mg Q6H PRN IVP 07/17/17 17:45 (Narcan Inj) 0.4 mg UNSCH PRN IV PUSH 07/17/17 17:45 (Aggie-Colace) 1 tab BID PO 07/17/17 21:00 07/17/17 20:59 (Milk Of Magnesia Liq) 30 ml Q12H PRN PO 07/17/17 17:45 (Senokot) 17.2 mg Q12H PRN PO 07/17/17 17:45 (Dulcolax Supp) 10 mg DAILY PRN RECTAL 07/17/17 17:45 (Lactulose Liq) 30 ml DAILY PRN PO 07/17/17 17:45 (D50w (Vial) Inj) 50 ml UNSCH PRN IV PUSH 07/17/17 18:00 (Glucagon Inj) 1 mg UNSCH PRN OTHER 07/17/17 18:00 (NovoLOG SUPPLEMENTAL SCALE) 1 ACHS SLIDING SCALE SQ 07/17/17 21:00 (PROzac) 20 mg DAILY PO 07/18/17 09:00 (Prinivil) 5 mg DAILY PO 07/18/17 09:00 ([place] Thyroid) 30 mg DAILY PO 07/18/17 09:00 (Pravachol) 20 mg DAILY PO 07/18/17 09:00 (Cardizem) 30 mg ONCE ONCE PO 07/18/17 06:45 07/18/17 06:46 UNV Vital Signs / I&O Vital Signs Date Time Temp Pulse Resp B/P (MAP) Pulse Ox O2 Delivery O2 Flow Rate FiO2 07/18/17 06:05 57 07/18/17 05:05 67 07/18/17 04:32 98.1 67 96/54 (68) 94 07/18/17 04:28 70 07/18/17 03:02 56 07/18/17 02:10 58 07/18/17 01:01 56 07/18/17 00:13 98.0 55 96/51 (66) 97 07/18/17 00:00 64 07/17/17 23:00 52 07/17/17 22:00 56 07/17/17 21:20 Nasal Cannula 2.00 07/17/17 21:00 64 07/17/17 20:00 62 07/17/17 19:00 97 Nasal Cannula 2.00 07/17/17 19:00 68 16 100/54 (69) 95 Nasal Cannula 3 07/17/17 19:00 98.0 65 103/53 (70) 97 07/17/17 18:45 69 16 101/52 (68) 95 Nasal Cannula 3 07/17/17 18:30 97.6 70 16 91/53 (66) 95 Nasal Cannula 3 07/17/17 18:15 98 16 91/63 (72) 94 Nasal Cannula 3 07/17/17 18:00 110 16 90/62 (71) 93 Nasal Cannula 3 07/17/17 17:45 116 16 90/64 (73) 93 Nasal Cannula 3 07/17/17 17:30 115 16 96/62 (73) 92 Nasal Cannula 3 07/17/17 17:15 121 16 110/55 (73) 92 Nasal Cannula 3 07/17/17 17:00 124 17 95/59 (71) 95 Nasal Cannula 4 07/17/17 16:45 119 17 128/63 (84) 95 Nasal Cannula 4 07/17/17 16:30 120 17 139/78 (98) 94 Nasal Cannula 4 07/17/17 16:15 130 17 155/75 (101) 93 Nasal Cannula 4 07/17/17 16:10 97.5 133 24 157/82 (107) 93 Nasal Cannula 4 07/17/17 15:45 98 07/17/17 11:26 Room Air I/O 07/17/17 07/17/17 07/17/17 07/18/17 07/18/17 07/18/17 07:00 15:00 23:00 07:00 15:00 23:00 Intake Total 600 ml 758 ml Output Total 600 ml Balance 600 ml 158 ml Intake Oral 100 ml 240 ml IV Total 500 ml 518 ml Output Urine Total 600 ml # Voids 0 Physical Exam VSS, afebrile. No JVD Lungs: CTA Heart; RRR. no murmur, gal, rubs. Ext: No C/C/E, warm and well perfused. Neuro: Non-focal. Laboratory EKG: NSR, rate 62, poor R wave progression. QTc 425 ms. Laboratory Tests Test 07/17/17 20:42 07/17/17 20:49 07/18/17 04:40 White Blood Count 12.8 TH/MM3 7.9 TH/MM3 Red Blood Count 4.02 MIL/MM3 3.83 MIL/MM3 Hemoglobin 11.6 GM/DL 11.2 GM/DL Hematocrit 35.4 % 33.3 % Mean Corpuscular Volume 88.0 FL 87.0 FL Mean Corpuscular Hemoglobin 28.9 PG 29.2 PG Mean Corpuscular Hemoglobin Concent 32.9 % 33.6 % Red Cell Distribution Width 15.4 % 15.1 % Platelet Count 244 TH/MM3 276 TH/MM3 Mean Platelet Volume 7.3 FL 7.1 FL Blood Urea Nitrogen 14 MG/DL 12 MG/DL Creatinine 0.65 MG/DL 0.61 MG/DL Random Glucose 111 MG/DL 89 MG/DL Calcium Level 8.0 MG/DL 8.2 MG/DL Sodium Level 143 MEQ/L 142 MEQ/L Potassium Level 4.5 MEQ/L 4.3 MEQ/L Chloride Level 110 MEQ/L 109 MEQ/L Carbon Dioxide Level 22.8 MEQ/L 25.4 MEQ/L Anion Gap 10 MEQ/L 8 MEQ/L Estimat Glomerular Filtration Rate 90 ML/MIN 97 ML/MIN Magnesium Level 2.0 MG/DL Neutrophils (%) (Auto) 72.5 % Lymphocytes (%) (Auto) 17.7 % Monocytes (%) (Auto) 8.5 % Eosinophils (%) (Auto) 0.8 % Basophils (%) (Auto) 0.5 % Neutrophils # (Auto) 5.7 TH/MM3 Lymphocytes # (Auto) 1.4 TH/MM3 Monocytes # (Auto) 0.7 TH/MM3 Eosinophils # (Auto) 0.1 TH/MM3 Basophils # (Auto) 0.0 TH/MM3 CBC Comment DIFF FINAL Differential Comment Imaging Last 48 hours Impressions Chest X-Ray 07/17/17 0000 Signed Impressions: Service Date/Time: Monday, July 17, 2017 16:16 - CONCLUSION: 1. No significant pneumothorax status post bronchoscopy. 2. Approximately 6 cm right perihilar lung mass. Mikey Avila MD Chest CT 07/17/17 0000 Signed Impressions: Service Date/Time: Monday, July 17, 2017 18:44 - CONCLUSION: Right hilar/infrahilar mass with contiguous mediastinal involvement. Metastatic disease in the chest bilaterally and in the liver. No evident complication of today's biopsy Mak Ward MD Assessment and Plan Problem List: (1) Paroxysmal atrial fibrillation with rapid ventricular response ICD Codes: I48.0 - Paroxysmal atrial fibrillation Status: Acute (2) Hypertension ICD Codes: I10 - Essential (primary) hypertension (3) Hypercholesteremia ICD Codes: E78.00 - Pure hypercholesterolemia, unspecified (4) Hypothyroid ICD Codes: E03.9 - Hypothyroidism, unspecified (5) Lung mass ICD Codes: R91.8 - Other nonspecific abnormal finding of lung field (6) Hypothyroidism ICD Codes: E03.9 - Hypothyroidism, unspecified (7) Diabetes mellitus ICD Codes: E11.9 - Type 2 diabetes mellitus without complications Assessment and Plan Back in NSR this AM. BP and HR low side. Will D/C lisinopril. Change cardizem to Cardizem CD 180 mg PO daily. Resume warfarin if OK with Dr. Ireland. CV stable and OK to discharge home today. Will arrange F/U next week with further outpatient workup. Code Status Full Discussed Condition With Patient, rn staffing and Dr. Ireland. Nj Britt MD July 18, 2017 06:48
[2017-07-18] MEDS: INSULIN ASPART SUPPLEMENTAL SCALE SQ SCH ×2 (08:00→12:00)
[2017-07-18] MEDS: DOCUSATE SODIUM 50 MG/SENNA 8.6 MG TAB PO SCH (08:18)
[2017-07-18] MEDS ORDERED: NON-FORMULARY DRUG (Simvastatin 10 MG) PO SCH (09:00)
[2017-07-18] MEDS ORDERED: THYROID 30 MG TAB PO SCH (09:00)
[2017-07-18] MEDS ORDERED: LISINOPRIL 5 MG TAB PO SCH (09:00)
[2017-07-18] MEDS ORDERED: DILTIAZEM-CD 180 MG CAP ER PO SCH (09:00)
[2017-07-18] MEDS ORDERED: FLUoxetine HCL 20 MG CAP PO SCH (09:00)
[2017-07-18] MEDS ORDERED: PRAVASTATIN SOD 20 MG TAB PO SCH (09:00)
--- NOTE | 2017-07-18 14:02 | MB ---
cc: Leonor Ireland MD,Kyler Cowart MD, DO DATE: 07/18/2017 HISTORY: Ms. Marie is a 67-year-old white female with a history of melanoma on her left arm in 2014. She has been followed carefully by Dr. Mathews. Recently she was found to have a mass in the right hilum of her lung after she complained of generalized fatigue, loss of appetite and 5-pound weight loss. We brought her in yesterday as an outpatient for a diagnostic bronchoscopy. At the end of the procedure, the patient developed rapid atrial arrhythmia and then atrial fibrillation. Dr. Britt saw her, we admitted her overnight to the hospitalist service for monitoring and rate control. She had had no prior cardiovascular history. At the time of this dictation, the patient is awake, alert, comfortable, back in sinus rhythm after receiving diltiazem. Dr. Britt saw her this morning and agreed that discharge was appropriate. She has really had no respiratory complications from the procedure. We did do a CT scan last night. In light of the change in status and she has an 8 cm right infrahilar mass with extension into the mediastinum or it may arise in the mediastinal lymph nodes, but no obvious post-procedure complication such as pneumothorax or obvious bleeding. This is a bit larger than the last scan, which I saw from June. Pathology reports are all pending. PAST MEDICAL HISTORY: Reviewed in my consultation note. PHYSICAL EXAMINATION: VITAL SIGNS: 98, 113/50, pulse 94, respirations 18, nonlabored. O2 saturation on room air 94%. NECK: No adenopathy in the neck. LUNGS: No subcutaneous air. Breath sounds are clear. HEART: Regular rhythm. EXTREMITIES: No significant edema. LABORATORY DATA: Hemoglobin stable at 11.2, white count 7900. Electrolytes were normal. DISCUSSION: Ms. Marie was admitted to observation overnight for onset of atrial fibrillation post-bronchoscopy. She has now converted. Dr. Britt has seen her and she is cleared for discharge. He has a followup with her next week. Pulmonary status is stable. Room air saturations are good. I explained to she and her son that the pathology reports are pending. Hopefully, they will be out within 48-72 hours and I will be sure Dr. Mathews gets those as soon as they are available. She will also resume her Coumadin at 4 mg tomorrow, which was her usual dose, for a history of recurrent DVT. She will call Dr. Sheldon's office tomorrow and also arrange her regular INR followups there. I also spoke with the hospitalist this morning and reviewed this plan. They are arranging discharge for today. Further intervention will depend on the results of these biopsies. R. MD LITTLE Wilkins/TRINH , 12:49 PM , 02:02 PM
[2017-07-18 14:30] LABS: PROTHROMBIN TIME - PATIENT 10.4 SEC (9.8-11.6)
[2017-07-18] MEDS ORDERED: COUM4TAB PO (16:10)
[2017-07-18] MEDS ORDERED: CARD180C5 PO (16:10)
--- NOTE | 2017-07-18 18:27 | HHI.PR ---
Subjective Remarks Resting comfortably in bed No event overnight Denied chest and or short of breath No fever or chills Discussed with the patient and her family and with Dr. Ireland the group billing coordinator he recommended placing her on Coumadin 4 mg only and he will see her in few days for follow-up Objective Vitals Vital Signs Date Time Temp Pulse Resp B/P (MAP) Pulse Ox O2 Delivery O2 Flow Rate FiO2 07/18/17 16:00 74 07/18/17 15:45 98.2 69 18 114/58 (76) 91 07/18/17 15:01 65 07/18/17 14:00 68 07/18/17 13:01 80 07/18/17 12:01 80 07/18/17 11:15 98.4 77 18 113/54 (73) 94 07/18/17 11:00 82 07/18/17 10:00 64 07/18/17 09:00 64 07/18/17 08:01 98.3 61 18 121/56 (77) 91 07/18/17 08:01 91 Room Air 07/18/17 08:00 62 07/18/17 07:00 71 07/18/17 06:05 57 07/18/17 05:05 67 07/18/17 04:32 98.1 67 96/54 (68) 94 07/18/17 04:28 70 07/18/17 03:02 56 07/18/17 02:10 58 07/18/17 01:01 56 07/18/17 00:13 98.0 55 96/51 (66) 97 07/18/17 00:00 64 07/17/17 23:00 52 07/17/17 22:00 56 07/17/17 21:20 Nasal Cannula 2.00 07/17/17 21:00 64 07/17/17 20:00 62 07/17/17 19:00 97 Nasal Cannula 2.00 07/17/17 19:00 68 16 100/54 (69) 95 Nasal Cannula 3 07/17/17 19:00 98.0 65 103/53 (70) 97 07/17/17 18:45 69 16 101/52 (68) 95 Nasal Cannula 3 07/17/17 18:30 97.6 70 16 91/53 (66) 95 Nasal Cannula 3 I/O 5/1507/17/17 07/17/17 07/18/17 07/18/17 07/18/17 07:00 15:00 23:00 07:00 15:00 23:00 Intake Total 600 ml 758 ml 720 ml Output Total 600 ml 300 ml Balance 600 ml 158 ml 420 ml Intake Oral 100 ml 240 ml 720 ml IV Total 500 ml 518 ml Output Urine Total 600 ml 300 ml # Voids 0 3 # Bowel Movements 0 Result Diagram: 07/18/1743907/18/17439 Objective Remarks GENERAL: This is a well-nourished, well-developed patient, in no apparent distress. SKIN: No rashes, warm and dry HEAD: Atraumatic. Normocephalic. EYES: Pupils equal round and reactive. Extraocular motions intact. No scleral icterus. ENT: Nose without bleeding, or drainage, Airway patent. NECK: Trachea midline. Supple CARDIOVASCULAR: Regular rate and rhythm without murmurs, gallops, or rubs. RESPIRATORY: Fair air entry bilaterally. No wheezes, rales, or rhonchi. GASTROINTESTINAL: Abdomen soft, non-tender, nondistended. Positive bowel sounds MUSCULOSKELETAL: Extremities without clubbing, cyanosis, or edema. Pedal pulses appreciated NEUROLOGICAL: Awake and alert. Moves all extremity. Normal speech.no focal neurological deficit A/P Problem List: (1) Atrial fibrillation with RVR ICD Code: I48.91 - Unspecified atrial fibrillation (2) Diabetes mellitus ICD Code: E11.9 - Type 2 diabetes mellitus without complications (3) Hypothyroidism ICD Code: E03.9 - Hypothyroidism, unspecified (4) History of pulmonary embolus (PE) ICD Code: Z86.711 - Personal history of pulmonary embolism Assessment and Plan 1. Lung mass: Status post bronchoscopy with multiple biopsies taken. Pathology pending. Management per pulmonology. 2. Atrial fibrillation with RVR precipitated by procedure bronchoscopy: Needed osmole I will drip and Cardizem cardiology consultation 3. Dehydration: Patient appears clinically dry. Given 500 mL bolus of normal saline. Continue IV fluids. 4. Diabetes mellitus: Hold metformin. Monitor Accu-Cheks and cover with sliding scale insulin. 5. History of PE: Patient has been on Coumadin, which was held preprocedure. Per pulmonology, to stay off of anticoagulation for at least 24 hours due to the biopsies that were taken back to continue on only Coumadin 4 mg daily to be followed by her PCP 6. Hypothyroidism: Continue [place] Thyroid. 7. DVT prophylaxis: SCDs, CYNDEE longo. Avoid chemical prophylaxis until cleared by pulmonology. 8. Morbid obesity BMI 41.4 07/18:Discussed with the patient and her family and with Dr. Ireland the group billing coordinator he recommended placing her on Coumadin 4 mg only and he will see her in few days for follow-up Discharge Planning Discharge patient to home Condition on discharge: Improved Healthy heart diet as tolerated Ad Rach activity Rx written: See med rec Follow-up with primary care physician, cardiology in 1 week, pulmonology as directed Mindi Chapa MD July 18, 2017 18:27
--- NOTE | 2017-07-18 22:18 | EKG ---
Date Performed: 07/18/2017 Time Performed: 06:20:36 PTAGE: 67 years EKG: Sinus rhythm Poor R wave progression - probable normal variant Low QRS voltages in precordial leads Borderline EC G PREVIOUS TRACING : 07/17/2017 16.37 Compared to previous tracing, Afib with RVR is no longer p resent DOCTOR: Jamal Lehman Interpretating Date/Time 07/18/2017 22:17:44
--- NOTE | 2017-07-18 22:31 | EKG ---
Date Performed: 07/17/2017 Time Performed: 16:37:23 PTAGE: 67 years EKG: ATRIAL FIBRILLATION WITH RAPID VENTRICULAR RESPONSE ABNORMAL RHYTHM ECG PREVIOUS TRACING : 07/06/2017 10.53 Compared to previous tracing, atrial fibrillation is new DOCTOR: Jamal Lehman Interpretating Date/Time 07/18/2017 22:30:12
--- NOTE | 2017-07-19 15:22 | HHI.DS ---
Discharge Summary Admission Date July 17, 2017 at 19:37 Discharge Date: July 18, 2017 Admitting Diagnosis Atrial fibrillation with RVR (1) Atrial fibrillation with RVR ICD Code: I48.91 - Unspecified atrial fibrillation (2) Diabetes mellitus ICD Code: E11.9 - Type 2 diabetes mellitus without complications (3) Hypothyroidism ICD Code: E03.9 - Hypothyroidism, unspecified (4) History of pulmonary embolus (PE) ICD Code: Z86.711 - Personal history of pulmonary embolism Procedures Bronchoscopy Brief History - From Admission The patient is a 67-year-old female who was brought to the hospital for bronchoscopy, done by Dr. Ireland today. Patient developed atrial fibrillation with RVR during the procedure. She was given esmolol and return to sinus rhythm. She again went back to [facility] with RVR. Hospitalist was requested to admit the patient. Dr. Britt, cardiology, was also contacted by the graduate studies dean. The patient is seen in PACU. She denies chest pain. Does have some shortness of breath, which she states has been going on for the past week or so. She reports nausea, but no vomiting. CBC/BMP: 07/18/17 0440 07/18/17 0440 Significant Findings Laboratory Tests Test 07/17/17 20:42 07/17/17 20:49 07/18/17 04:40 07/18/17 13:20 White Blood Count 12.8 TH/MM3 (4.0-11.0) Random Glucose 111 MG/DL (74-106) Calcium Level 8.0 MG/DL (8.5-10.1) 8.2 MG/DL (8.5-10.1) Chloride Level 110 MEQ/L (98-107) 109 MEQ/L (98-107) Red Blood Count 3.83 MIL/MM3 (4.00-5.30) Hemoglobin 11.2 GM/DL (11.6-15.3) Hematocrit 33.3 % (35.0-46.0) Neutrophils (%) (Auto) 72.5 % (16.0-70.0) Monocytes (%) (Auto) 8.5 % (0.0-8.0) PE at Discharge GENERAL: This is a well-nourished, well-developed patient, in no apparent distress. SKIN: No rashes, warm and dry HEAD: Atraumatic. Normocephalic. EYES: Pupils equal round and reactive. Extraocular motions intact. No scleral icterus. ENT: Nose without bleeding, or drainage, Airway patent. NECK: Trachea midline. Supple CARDIOVASCULAR: Regular rate and rhythm without murmurs, gallops, or rubs. RESPIRATORY: Fair air entry bilaterally. No wheezes, rales, or rhonchi. GASTROINTESTINAL: Abdomen soft, non-tender, nondistended. Positive bowel sounds MUSCULOSKELETAL: Extremities without clubbing, cyanosis, or edema. Pedal pulses appreciated NEUROLOGICAL: Awake and alert. Moves all extremity. Normal speech.no focal neurological deficit Hospital Course 67 years old female with H/O lung mass admitted to have bronchoscopy by her graduate studies dean Dr. Ireland, patient had bronchoscopy with multiple biopsies taken. Pathology pending. Management per pulmonology. Atrial fibrillation with RVR precipitated by procedure bronchoscopy: Needed osmole I will drip and Cardizem cardiology consultation Dehydration: Patient appears clinically dry. Given 500 mL bolus of normal saline. Continue IV fluids. Diabetes mellitus: Hold metformin. Monitor Accu-Cheks and cover with sliding scale insulin. History of PE: Patient has been on Coumadin, which was held preprocedure. Per pulmonology, to stay off of anticoagulation for at least 24 hours due to the biopsies that were taken back to continue on only Coumadin 4 mg daily to be followed by her PCP ered Hypothyroidism: Continue [place] Thyroid. DVT prophylaxis: SCDs, CYNDEE hose. Avoid chemical prophylaxis due to recent bronchoscopy, also patient had morbid obesity BMI 41.4 On 07/18:Discussed with the patient and her family and with Dr. Ireland the graduate studies dean he recommended placing her on Coumadin 4 mg only and he will see her in few days for follow-up [id number] encounter performed with the patient on discharge day, as well as physical exam, summary of hospitalization course and postdischarge plan has been D/W the patient. D/W nurse D/W case coordinator. Discharge medications reviewed and printed and signed, post discharge follow up visit with PCP and other specialist as well as Brief hospital course and discharge summary has been placed. Pt Condition on Discharge: Good Discharge Disposition: Discharge Home Discharge Time: > 30 minutes Discharge Instructions DIET: Follow Instructions for: Heart Healthy Diet, Diabetic Diet Activities you can perform: Weight Bearing as Silvestre Follow up Referrals: Pulmonology - 2-3 Days with Leonor Ireland MD New Orders: PT/INR - Daily New Medications: Warfarin (Coumadin) 4 Mg Tab 4 MG PO DAILY for Prevent Blood Clot, #30 TAB 0 Refills Diltiazem CD 24 HR (Cardizem CD 24 HR) 180 Mg Caper 180 MG PO DAILY for cardiac, #30 CAP Continued Medications: Fluoxetine (Fluoxetine) 20 Mg Tab 20 MG PO DAILY, #30 TAB 0 Refills Metformin (Metformin) 1,000 Mg Tab 1000 MG PO DAILY for Blood Sugar Management, #30 TAB 0 Refills With a meal Thyroid ([place]unger Thyroid) 30 Mg Tab 30 MG PO DAILY for Thyroid Supplement, #30 TAB 0 Refills Mindi Chapa MD July 19, 2017 15:22
== END 2017-07-18 17:17 | disposition home or self-care (01) | DRG 309 ==
LOC: HROP 10:40 → HRIP 10:42 → HROP 19:36 → HCPC 19:37
PROVIDERS: ADMIT Hospitalist; ATTEND Hospitalist
PROC: 0BDF8ZX Extraction of Right Lower Lung Lobe, Via Natural or Artificial Opening Endoscopic, Diagnostic (ICD-10-PCS; principal; 2017-07-17)
PROC: 0BDD8ZX Extraction of Right Middle Lung Lobe, Via Natural or Artificial Opening Endoscopic, Diagnostic (ICD-10-PCS; 2017-07-17)
DX: I48.0 Paroxysmal atrial fibrillation (principal); R91.8 Other nonspecific abnormal finding of lung field; Z68.41 Body mass index [BMI] 40.0-44.9, adult; I95.9 Hypotension, unspecified; I11.9 Hypertensive heart disease without heart failure; E03.9 Hypothyroidism, unspecified; E11.9 Type 2 diabetes mellitus without complications; R00.0 Tachycardia, unspecified; E78.00 Pure hypercholesterolemia, unspecified; E86.0 Dehydration; R59.0 Localized enlarged lymph nodes; R63.4 Abnormal weight loss; Z79.84 Long term (current) use of oral hypoglycemic drugs; Z79.01 Long term (current) use of anticoagulants; Z87.891 Personal history of nicotine dependence; Z85.820 Personal history of malignant melanoma of skin; Z82.49 Family history of ischemic heart disease and other diseases of the circulatory system; Z86.711 Personal history of pulmonary embolism
CPT/HCPCS: 31625; 31652; 71045; 71250; 80048; 82948; 83735; 85025; 85027; 85610; 87015; 87070; 87102; 87116; 87205; 87206; 88112; 88305; 93005; 94664; J0171; J2405; J2550; J3480; J7040; J7611

== ENCOUNTER 2017-08-05 13:47 | Observation (INO) | payer MEDICARE ==
[~2017-08-05] VITALS: Ht 160 cm; Wt 105.2 kg
[2017-08-05] VITALS (9 sets, daily range): BP systolic 115–148; BP diastolic 65–77; PULSE 73–91; RESP 18–20; TEMP 98–98.3; O2SAT 93–100
[~2017-08-05 13:47] MED LIST changes: +CARD180C5 PO; +COUM4TAB PO
[2017-08-05] MEDS ORDERED: SODIUM CHLOR 0.9% 1000 ML INJ 1,000 ML IV SCH (14:37)
--- NOTE | 2017-08-05 14:37 | PD ---
HPI Chief Complaint: GI Complaint Time Seen by Provider: 14:36 Travel History International Travel<30 days: No Contact w/Intl Traveler<30days: No Traveled to known affect area: No History of Present Illness HPI Complaint of right lower quadrant pain No known drug allergy Past medical history significant for hypothyroid, corrective lenses, vertigo, hypertension, pulmonary embolus, hiatal hernia, total hysterectomy, umbilical hernia repair, arthritis, total left hip replacement, diabetes PFSH Past Medical History Arthritis: Yes Asthma: No Blood Disorders: No Anxiety: No Depression: Yes Heart Rhythm Problems: No Cancer: Yes (MELANOMA 2014, ENDOMETRIAL CANCER, COMPLETE HYSTERECTOMY 2008) Cardiovascular Problems: Yes High Cholesterol: No Chemotherapy: No Chest Pain: No Congestive Heart Failure: No COPD: No Cerebrovascular Accident: No Diabetes: Yes Diminished Hearing: No Endocrine: Yes Gastrointestinal Disorders: No GERD: No Glaucoma: No Genitourinary: Yes Headaches: No Hepatitis: No Hiatal Hernia: Yes Hypertension: Yes Immune Disorder: No Implanted Vascular Access Dvce: No Kidney Stones: No Musculoskeletal: Yes Neurologic: Yes (HX OF VERTIGO) Psychiatric: Yes Reproductive: No Respiratory: Yes (HX OF MASSIVE PULMONARY EMBOLISM 2000, RECURRED WHEN OFF COUMADIN 2013) Migraines: No Myocardial Infarction: No Radiation Therapy: No Renal Failure: No Seizures: No Sickle Cell Disease: No Sleep Apnea: No Thyroid Disease: Yes (HX OF HYPOTHYROID) Ulcer: No Menopausal: Yes Dilation and Curettage (D&C): Yes (2001 2008) Past Surgical History Abdominal Surgery: Yes (UMBILICAL HERNIA REPAIR 1999) AICD: No Appendectomy: No Arteriovenous Shunt: No Body Medical Devices: PESARY Cardiac Surgery: No Cholecystectomy: No Ear Surgery: No Endocrine Surgery: No Eye Surgery: Yes (CATARACTS REMOVED 2013) Genitourinary Surgery: Yes (LESIONS REMOVED FROM VULVA MAR 2014, PESSARY) Gynecologic Surgery: Yes (TOTAL HYSTERECTOMY, D & C 2001; D&C 07/11) Hysterectomy: Yes Insulin Pump: No Joint Replacement: Yes (L HIP) Neurologic Surgery: No Oral Surgery: No Pacemaker: No Thoracic Surgery: No Other Surgery: Yes Social History Alcohol Use: No Tobacco Use: No Substance Use: No Allergies-Medications (Allergen,Severity, Reaction): Coded Allergies: No Known Allergies (Verified Allergy, Unknown, 08/05/17) Reported Meds & Prescriptions Reported Meds & Active Scripts Active Cardizem CD 24 HR (Diltiazem CD 24 HR) 180 Mg Caper 180 Mg PO DAILY Reported Mapap (Acetaminophen) 500 Mg Tab 500 Mg PO Q4-6H PRN Exploitation Analyst Thyroid (Thyroid) 30 Mg Tab 30 Mg PO DAILY Metformin (Metformin HCl) 1,000 Mg Tab 1,000 Mg PO DAILY With a meal Warfarin 3 Mg Tab 3.5 Mg PO DAILY Simvastatin 10 Mg Tab 10 Mg PO DAILY Fluoxetine (Fluoxetine HCl) 20 Mg Tab 20 Mg PO DAILY Data Data Last Documented VS Vital Signs Date Time Temp Pulse Resp B/P (MAP) Pulse Ox O2 Delivery O2 Flow Rate FiO2 08/05/17 16:08 18 08/05/17 15:59 81 135/74 (94) 95 Room Air 08/05/17 13:55 98.3 Orders Orders Complete Blood Count With Diff (08/05/17 14:37) Comprehensive Metabolic Panel (08/05/17 14:37) Lipase (08/05/17 14:37) Urinalysis - C+S If Indicated (08/05/17 14:37) Ct Abd/Pel W/O Iv Contrast (08/05/17 14:37) Iv Access Insert/Monitor (08/05/17 14:37) Ecg Monitoring (08/05/17 14:37) Oximetry (08/05/17 14:37) NPO (08/05/17 14:37) Morphine Inj (Morphine Inj) (08/05/17 14:45) Sodium Chlor 0.9% 1000 Ml Inj (Ns 1000 M (08/05/17 14:37) Sodium Chloride 0.9% Flush (Ns Flush) (08/05/17 14:45) Metoclopramide Inj (Reglan Inj) (08/05/17 14:45) Prothrombin Time / Inr (Pt) (08/05/17 15:31) Act Partial Throm Time (Ptt) (08/05/17 15:31) Labs Laboratory Tests Test 08/05/17 15:00 08/05/17 15:15 White Blood Count 11.8 TH/MM3 Red Blood Count 3.63 MIL/MM3 Hemoglobin 10.4 GM/DL Hematocrit 30.7 % Mean Corpuscular Volume 84.6 FL Mean Corpuscular Hemoglobin 28.7 PG Mean Corpuscular Hemoglobin Concent 33.9 % Red Cell Distribution Width 13.4 % Platelet Count 505 TH/MM3 Mean Platelet Volume 6.9 FL Neutrophils (%) (Auto) 76.2 % Lymphocytes (%) (Auto) 14.7 % Monocytes (%) (Auto) 8.0 % Eosinophils (%) (Auto) 0.9 % Basophils (%) (Auto) 0.2 % Neutrophils # (Auto) 9.1 TH/MM3 Lymphocytes # (Auto) 1.7 TH/MM3 Monocytes # (Auto) 0.9 TH/MM3 Eosinophils # (Auto) 0.1 TH/MM3 Basophils # (Auto) 0.0 TH/MM3 CBC Comment DIFF FINAL Differential Comment Prothrombin Time 20.7 SEC Prothromb Time International Ratio 2.0 RATIO Activated Partial Thromboplast Time 37.5 SEC Blood Urea Nitrogen 11 MG/DL Creatinine 0.53 MG/DL Random Glucose 91 MG/DL Total Protein 7.0 GM/DL Albumin 2.8 GM/DL Calcium Level 8.6 MG/DL Alkaline Phosphatase 86 U/L Aspartate Amino Transf (AST/SGOT) 13 U/L Alanine Aminotransferase (ALT/SGPT) 16 U/L Total Bilirubin 0.5 MG/DL Sodium Level 137 MEQ/L Potassium Level 4.0 MEQ/L Chloride Level 102 MEQ/L Carbon Dioxide Level 27.8 MEQ/L Anion Gap 7 MEQ/L Estimat Glomerular Filtration Rate 114 ML/MIN Lipase 173 U/L Urine Collection Type CLEAN CATCH Urine Color YELLOW Urine Turbidity SL CLOUDY Urine pH 6.5 Urine Specific [place] 1.010 Urine Protein 30 mg/dL Urine Glucose (UA) NEG mg/dL Urine Ketones NEG mg/dL Urine Occult Blood LARGE Urine Nitrite NEG Urine Bilirubin NEG Urine Urobilinogen 0.2 MG/DL Urine Leukocyte Esterase NEG Urine RBC 50-99 /hpf Urine WBC 0-2 /hpf Urine Squamous Epithelial Cells 6-8 /hpf Urine Transitional Epithelial Cells 0-5 /hpf Urine Amorphous Sediment MOD Microscopic Urinalysis Comment CULT NOT INDICATED Urine Collection Time 1515 MDM Medical Decision Making Medical Screen Exam Complete: Yes Emergency Medical Condition: Yes Medical Record Reviewed: Yes Narrative Course CBC shows reactive leukocytosis 11.8, mild anemia of 10/30, normal platelet count 500,000, no left shift Adequately anticoagulated 2.0 INR on Coumadin Electrolytes are within normal limits, normal kidney liver and pancreatic functions UA is not significant for UTI CT abdomen and pelvis shows 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 Diagnosis Primary Impression: Acute duodenitis Clark Jeffries MD Aug 05, 2017 14:37
[2017-08-05] MEDS ORDERED: SODIUM CHLORIDE 0.9% FLUSH 10 ML FLUSH IV FLUSH PRN ×2 (14:45→17:45)
[2017-08-05] MEDS ORDERED: MORPHINE SULFATE 4 MG/ML INJ IV PUSH ONE (14:45)
[2017-08-05] MEDS ORDERED: METOCLOPRAMIDE HCL 10 MG/2 ML VIAL IV PUSH ONE (14:45)
[2017-08-05 15:25] LABS: AUTOMATED NEUTROPHIL # 9.1 TH/MM3 (1.8-7.7); BASOPHIL % 0.2 % (0.0-2.0); EOSINOPHIL # 0.1 TH/MM3 (0-0.4); EOSINOPHIL % 0.9 % (0.0-4.0); HEMATOCRIT 30.7 % (35.0-46.0); HEMOGLOBIN 10.4 GM/DL (11.6-15.3); LYMPH % 14.7 % (9.0-44.0); LYMPHOCYTE # 1.7 TH/MM3 (1.0-4.8); MEAN CELL VOLUME 84.6 FL (80.0-100.0); MEAN CORPUSCULAR HEMOGLOBIN 28.7 PG (27.0-34.0); MEAN CORPUSCULAR HGB CONC 33.9 % (32.0-36.0); MEAN PLATELET VOLUME 6.9 FL (7.0-11.0); MONOCYTE # 0.9 TH/MM3 (0-0.9); NEUT % 76.2 % (16.0-70.0); PLATELET COUNT 505 TH/MM3 (150-450); RED BLOOD COUNT 3.63 MIL/MM3 (4.00-5.30); RED CELL DISTRIBUTION WIDTH 13.4 % (11.6-17.2); WHITE BLOOD COUNT 11.8 TH/MM3 (4.0-11.0)
[2017-08-05 15:27] LABS: BILIRUBIN, URINE NEG (NEG); BLOOD, URINE LARGE (NEG); GLUCOSE,URINE NEG (NEG); KETONE, URINE NEG (NEG); NITRITE,URINE NEG (NEG); PH, URINE 6.5 (5.0-8.5); URINE COLOR YELLOW (YELLW/STRAW); URINE LEUKOCYTE ESTERASE NEG (NEG)
[2017-08-05 15:37] LABS: CHLORIDE 102 MEQ/L (98-107); SODIUM (NA) 137 MEQ/L (136-145)
[2017-08-05 15:40] LABS: ALBUMIN 2.8 GM/DL (3.4-5.0); BICARBONATE 27.8 MEQ/L (21.0-32.0); BLOOD UREA NITROGEN 11 MG/DL (7-18); CALCIUM 8.6 MG/DL (8.5-10.1); GLUCOSE,RANDOM 91 MG/DL (74-106)
[2017-08-05 15:43] LABS: ALT (GPT) 16 U/L (10-53); AST (GOT) 13 U/L (15-37); CREATININE 0.53 MG/DL (0.50-1.00); GLOMERULAR FILTRATION RATE 114 ML/MIN (>89)
[2017-08-05 15:45] LABS: TOTAL BILIRUBIN ADULT 0.5 MG/DL (0.2-1.0)
[2017-08-05 15:46] LABS: ALKALINE PHOSPHATASE 86 U/L (45-117)
[2017-08-05 15:53] LABS: PROTHROMBIN TIME - PATIENT 20.7 SEC (9.8-11.6)
--- NOTE | 2017-08-05 15:57 | RADRPT ---
EXAM DATE: 08/05/2017 3:43 PM EDT AGE/SEX: 67 years / Female INDICATIONS: Right lower quadrant pain and nausea. CLINICAL DATA: This is the patient's initial encounter. Patient reports that signs and symptoms have been present for 3 days and indicates a pain score of 5/10. MEDICAL/SURGICAL HISTORY: Hypothyroidism. Hypertension. Pulmonary embolism. Umbilical hernia repair. Hysterectomy. Orthopedic surgery. RADIATION DOSE: 24.43 CTDI (mGy) COMPARISON: . TECHNIQUE: Multiple contiguous axial images were obtained through the abdomen. Images were obtained using multiple row detector helical technique. Using dose reduction techniques, radiation dose was ke pt as low as reasonably achievable to obtain optimal diagnostic quality images. FINDINGS: Large right infrahilar mass again seen in the visualized lung base and with a small right pleural eff usion. 11 mm mass of the right middle lobe not significantly changed. 6 mm mass of the left lower lob e not significantly changed. There is heterogeneous attenuation enlargement of the right adrenal glan d measuring 5.6 cm in size. The adrenal gland was previously normal consistent with acute or subacute adrenal hemorrhage rather than a metastasis. Scattered ill-defined metastatic lesions are seen of the liver measuring up to 3.8 cm in size. Mild edema centered around the pancreas and duodenum. Please correlate clinically for the possibility of mild acute pancreatitis. The rest of the small bowel within normal limits. Colon within normal li mits. Appendix within normal limits. Spleen within normal limits. 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 No acute renal abnor mality demonstrated. CONCLUSION: 1. 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 There are pulmonary a nd hepatic metastases again noted. 2. New heterogeneous marked enlargement of the right adrenal gland typical of acute or subacute adre nal hemorrhage. 3. Possible pancreatitis and/or duodenitis in the proper clinical setting. 4. Colon and appendix within normal limits. Electronically signed by: Mak Noonan MD 08/05/2017 3:56 PM EDT
[2017-08-05 15:59] LABS: AMORPHOUS SEDIMENT, URINE MOD; TRANSITIONAL EPI CELLS, URINE 0-5 /hpf; WBC, URINE 0-2 /hpf (0-5)
[2017-08-05] MEDS ORDERED: MORPHINE SULFATE 4 MG/ML INJ IV PUSH PRN (17:45)
[2017-08-05] MEDS ORDERED: METOCLOPRAMIDE HCL 10 MG/2 ML VIAL IV PUSH PRN (17:45)
[2017-08-05] MEDS: PANTOPRAZOLE SOD 40 MG DELAYED RELEASE TAB PO SCH (18:23)
[2017-08-05] MEDS: LACTATED RINGER'S 1000 ML INJ 1,000 ML IV SCH (18:23)
[2017-08-05] MEDS: SODIUM CHLORIDE 0.9% FLUSH 10 ML FLUSH IV FLUSH SCH (21:00)
[2017-08-05] MEDS: ACETAMINOPHEN 325 MG TAB PO PRN (23:16)
[2017-08-05] MEDS: ZOLPIDEM TARTRATE 5 MG TAB PO PRN (23:16)
[2017-08-06] VITALS (10 sets, daily range): BP systolic 120–144; BP diastolic 63–72; PULSE 70–81; RESP 16–19; TEMP 97.9–98.5; O2SAT 93–95
[2017-08-06] MEDS: LACTATED RINGER'S 1000 ML INJ 1,000 ML IV SCH ×3 (03:35→22:39)
[2017-08-06] MEDS: PANTOPRAZOLE SOD 40 MG DELAYED RELEASE TAB PO SCH (08:39)
[2017-08-06] MEDS: THYROID 30 MG TAB PO SCH (08:40)
[2017-08-06] MEDS: PRAVASTATIN SOD 20 MG TAB PO SCH (08:40)
[2017-08-06] MEDS: DILTIAZEM-CD 180 MG CAP ER PO SCH (08:40)
[2017-08-06] MEDS: FLUoxetine HCL 20 MG CAP PO SCH (08:40)
[2017-08-06] MEDS: ACETAMINOPHEN 325 MG TAB PO PRN ×3 (08:42→22:39)
[2017-08-06] MEDS: SODIUM CHLORIDE 0.9% FLUSH 10 ML FLUSH IV FLUSH SCH ×2 (08:42→22:39)
--- NOTE | 2017-08-06 09:48 | HHI.HP ---
History of Present Illness Primary Care Physician Kyler Sheldon, DO Admission Diagnosis DUODENITIS, POSSIBLE SUBACUTE ADRENAL HEMORRHAGE ON COUMADIN Diagnoses: History of Present Illness Patient presents for RLQ pain she states it has been present for several weeks , It comes and goes. She denies any nausea, vomiting or diarrhea associated with pain. She is under care of oncology Dr Ortega for melanoma, Lung ca with mets. She is on jail Coumadin for for DVT/PE. Review of Systems Constitutional: COMPLAINS OF: Fatigue Gastrointestinal: COMPLAINS OF: Abdominal pain, Anorexia Past Family Social History Allergies: Coded Allergies: No Known Allergies (Verified Allergy, Unknown, 08/05/17) Past Medical History hypothyroid Vertigo HTN PE Hiatal Hernia Arthritis DM Melanoma Past Surgical History Hysterectomy 2009 Hernia repair Cataracts removed L SAHARA Reported Medications Reported Mapap (Acetaminophen) 500 Mg Tab 500 Mg PO Q4-6H PRN Grounds Maintenance Manager Thyroid (Thyroid) 30 Mg Tab 30 Mg PO DAILY Metformin (Metformin HCl) 1,000 Mg Tab 1,000 Mg PO DAILY With a meal Warfarin 3 Mg Tab 3.5 Mg PO DAILY Simvastatin 10 Mg Tab 10 Mg PO DAILY Fluoxetine (Fluoxetine HCl) 20 Mg Tab 20 Mg PO DAILY Active Ordered Medications Current Medications Medications (Trade) Dose Ordered Sig/Delores Route Start Time Stop Time Status Last Admin Lactated Ringer's 1,000 ml @ 100 mls/hr Q10H IV 08/05/17 17:35 08/06/17 08:42 (NS Flush) 2 ml UNSCH PRN IV FLUSH 08/05/17 17:45 (NS Flush) 2 ml BID IV FLUSH 08/05/17 21:00 (Tylenol) 650 mg Q4H PRN PO 08/05/17 17:45 08/06/17 08:42 (Morphine Inj) 2 mg Q2H PRN IV PUSH 08/05/17 17:45 08/06/17 06:12 (Reglan Inj) 10 mg Q6H PRN IV PUSH 08/05/17 17:45 08/06/17 06:18 (Ambien) 5 mg HS PRN PO 08/05/17 17:45 08/05/17 23:16 (Protonix) 40 mg DAILY PO 08/05/17 17:45 08/06/17 08:39 (Cardizem Cd) 180 mg DAILY PO 6/4/18 09:00 08/06/17 08:40 (PROzac) 20 mg DAILY PO 08/06/17 09:00 08/06/17 08:40 ([place] Thyroid) 30 mg DAILY PO 08/06/17 09:00 08/06/17 08:40 (Pravachol) 20 mg DAILY PO 08/06/17 09:00 08/06/17 08:40 Social History Denies Tobacco, ETOH Physical Exam Vital Signs Vital Signs Date Time Temp Pulse Resp B/P (MAP) Pulse Ox O2 Delivery O2 Flow Rate FiO2 08/06/17 08:00 98.2 79 18 137/63 (87) 94 08/06/17 04:40 98.0 75 19 120/67 (84) 94 08/06/17 04:00 70 08/06/17 02:20 77 08/05/17 22:30 98.0 84 18 128/65 (86) 94 08/05/17 21:56 75 20 124/68 (86) 98 08/05/17 21:26 79 20 126/68 (87) 96 08/05/17 19:21 91 20 115/73 (87) 93 08/05/17 19:21 20 08/05/17 18:29 81 18 148/77 (100) 95 Room Air 08/05/17 17:10 73 18 140/65 (90) 94 Room Air 08/05/17 16:08 18 08/05/17 15:59 81 18 135/74 (94) 95 Room Air 08/05/17 14:43 100 Room Air 08/05/17 13:55 98.3 90 18 145/67 (93) 93 Physical Exam GENERAL: This is a well-nourished, well-developed patient, in no apparent distress. SKIN: No rashes, ecchymoses or lesions. warm and dry. HEAD: Atraumatic. Normocephalic. No temporal or scalp tenderness. EYES: Pupils equal round and reactive. Extraocular motions intact. No scleral icterus. No injection or drainage. ENT: Nose without bleeding, purulent drainage or septal hematoma. Airway patent. NECK: Trachea midline. No JVD or lymphadenopathy. Supple, nontender, no meningeal signs. CARDIOVASCULAR: Regular rate and rhythm without murmurs, gallops, or rubs. RESPIRATORY: Clear to auscultation. Breath sounds equal bilaterally. No wheezes , rales, or rhonchi. GASTROINTESTINAL: Abdomen soft, Tender to RUQ, BS present No guarding. MUSCULOSKELETAL: Extremities without clubbing, cyanosis, or edema. Negative Homans sign bilaterally. NEUROLOGICAL: Awake and alert. Cranial nerves II through XII intact.Normal speech. Laboratory Laboratory Tests Test 08/05/17 15:00 08/05/17 15:15 White Blood Count 11.8 Red Blood Count 3.63 Hemoglobin 10.4 Hematocrit 30.7 Mean Corpuscular Volume 84.6 Mean Corpuscular Hemoglobin 28.7 Mean Corpuscular Hemoglobin Concent 33.9 Red Cell Distribution Width 13.4 Platelet Count 505 Mean Platelet Volume 6.9 Neutrophils (%) (Auto) 76.2 Lymphocytes (%) (Auto) 14.7 Monocytes (%) (Auto) 8.0 Eosinophils (%) (Auto) 0.9 Basophils (%) (Auto) 0.2 Neutrophils # (Auto) 9.1 Lymphocytes # (Auto) 1.7 Monocytes # (Auto) 0.9 Eosinophils # (Auto) 0.1 Basophils # (Auto) 0.0 CBC Comment DIFF FINAL Differential Comment Prothrombin Time 20.7 Prothromb Time International Ratio 2.0 Activated Partial Thromboplast Time 37.5 Blood Urea Nitrogen 11 Creatinine 0.53 Random Glucose 91 Total Protein 7.0 Albumin 2.8 Calcium Level 8.6 Alkaline Phosphatase 86 Aspartate Amino Transf (AST/SGOT) 13 Alanine Aminotransferase (ALT/SGPT) 16 Total Bilirubin 0.5 Sodium Level 137 Potassium Level 4.0 Chloride Level 102 Carbon Dioxide Level 27.8 Anion Gap 7 Estimat Glomerular Filtration Rate 114 Lipase 173 Urine Collection Type CLEAN CATCH Urine Color YELLOW Urine Turbidity SL CLOUDY Urine pH 6.5 Urine Specific [place] 1.010 Urine Protein 30 Urine Glucose (UA) NEG Urine Ketones NEG Urine Occult Blood LARGE Urine Nitrite NEG Urine Bilirubin NEG Urine Urobilinogen 0.2 Urine Leukocyte Esterase NEG Urine RBC 50-99 Urine WBC 0-2 Urine Squamous Epithelial Cells 6-8 Urine Transitional Epithelial Cells 0-5 Urine Amorphous Sediment MOD Microscopic Urinalysis Comment CULT NOT INDICATED Urine Collection Time 1515 Result Diagram: 08/05/17 1500 08/05/17 1500 Imaging Last 24 hours Impressions Abdomen/Pelvis CT 08/05/17 1437 Signed Impressions: CONCLUSION: 1. 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 There are pulmonary and hepatic metastases again noted. 2. New heterogeneous marked enlargement of the right adrenal gland typical of acute or subacute adrenal hemorrhage. 3. Possible pancreatitis and/or duodenitis in the proper clinical setting. 4. Colon and appendix within normal limits. Caprini VTE Risk Assessment Caprini VTE Risk Assessment: Mod/High Risk (score >= 2) Caprini Risk Assessment Model Point Value = 1 Point Value = 2 Point Value = 3 Point Value = 5 Age 41-60 Minor surgery BMI > 25 kg/m2 Swollen legs Varicose veins or History of unexplained or recurrent spontaneous Oral contraceptives or hormone replacement Sepsis (< 1 month) Serious lung disease, including pneumonia (< 1 month) Abnormal pulmonary function Acute myocardial infarction Congestive heart failure (< 1 month) History of inflammatory bowel disease Medical patient at bed rest Age 61-74 Arthroscopic surgery Major open surgery (> 45 min) Laparoscopic surgery (> 45 min) Malignancy Confined to bed (> 72 hours) Immobilizing plaster cast Central venous access Age >= 75 History of VTE Family history of VTE Factor V Leiden Prothrombin [id number] Lupus anticoagulant Anticardiolipin antibodies Elevated serum homocysteine Heparin-induced thrombocytopenia Other congenital or acquired thrombophilia Stroke (< 1 month) Elective arthroplasty Hip, pelvis, or leg fracture Acute spinal cord injury (< 1 month) Prophylaxis Regimen Total Risk Factor Score Risk Level Prophylaxis Regimen 0-1 Low Early ambulation 2 Moderate Order ONE of the following: *Sequential Compression Device (SCD) *Heparin 5000 units SQ BID 3-4 Higher Order ONE of the following medications: *Heparin 5000 units SQ TID *Enoxaparin/Lovenox 40 mg SQ daily (WT < 150 kg, CrCl > 30 mL/min) *Enoxaparin/Lovenox 30 mg SQ daily (WT < 150 kg, CrCl > 10-29 mL/min) *Enoxaparin/Lovenox 30 mg SQ BID (WT < 150 kg, CrCl > 30 mL/min) AND/OR *Sequential Compression Device (SCD) 5 or more Highest Order ONE of the following medications: *Heparin 5000 units SQ TID (Preferred with Epidurals) *Enoxaparin/Lovenox 40 mg SQ daily (WT < 150 kg, CrCl > 30 mL/min) *Enoxaparin/Lovenox 30 mg SQ daily (WT < 150 kg, CrCl > 10-29 mL/min) *Enoxaparin/Lovenox 30 mg SQ BID (WT < 150 kg, CrCl > 30 mL/min) AND *Sequential Compression Device (SCD) Assessment and Plan Problem List: (1) Abdominal pain ICD Codes: R10.9 - Unspecified abdominal pain Plan: likely Duodenitis Gi Consulted NPO (2) Paroxysmal atrial fibrillation with rapid ventricular response ICD Codes: I48.0 - Paroxysmal atrial fibrillation Status: Acute Plan: Rate controlled, Cardizem Coumadin on hold. (3) Hypertension ICD Codes: I10 - Essential (primary) hypertension Plan: Cont home medications (4) Diabetes mellitus ICD Codes: E11.9 - Type 2 diabetes mellitus without complications Plan: Monitor, SC coverage Metformin on hold. (5) Hypothyroid ICD Codes: E03.9 - Hypothyroidism, unspecified Plan: Cont home medications (6) History of pulmonary embolism ICD Codes: Z86.711 - Personal history of pulmonary embolism Plan: terminal clerk Coumadin, On hold currently (7) Lung mass ICD Codes: R91.8 - Other nonspecific abnormal finding of lung field Plan: Lung ca with mets to liver. She is followed by Olesya Lloyd Aug 06, 2017 09:48
[2017-08-06] MEDS ORDERED: DEXTROSE 50% IN WATER 50 ML VIAL(D50) IV PUSH PRN (10:00)
[2017-08-06] MEDS ORDERED: GLUCAGON 1 MG/ML VIAL OTHER PRN (10:00)
--- NOTE | 2017-08-06 11:18 | PD.CONS ---
HPI History of Present Illness This is a 67 year old F with PMH significant for melanoma S/P surgical removal and lymph node resection who developed metastasis to her lung and was told yesterday that her CT scan also showed metastasis to the liver. Pts oncologist is Dr. Sadler, and she states she was planning on starting her on immunotherapy this Sunday and PET scan on Sunday. Other medical history includes previous DVT and PE, pt is on Coumadin, she reports that she had her INR checked a week ago and it was 7.9 so she has been of Coumadin since. Of note also has a Holter monitor because during recent bronchoscopy pt went into new onset atrial fibrillation with rapid ventricular rate. Pt presented to the ER yesterday with complaints of right sided abdominal pain for the past 4-5 days, she report that pain is in her right mid abdomen, intermittent but increasing in frequency. Initially pain was sharp but now is an aching pain. She denies any relation to PO intake or bowel movements. Of note, has not been eating much because she reports her appetite has been poor, has lost 8 lbs unintentionally over the past month or two. Also some mild tenderness to the RLQ with deep palpation. Pt reports some nausea but denies emesis. Denies constipation, diarrhea, blood in stool. CT abdomen and pelvis revealed possible pancreatitis and/or duodenitis in the proper clinical setting. Lipase currently WNL. Pt reports one prior episode of pancreatitis in 2012, denies ETOH, she is unclear of the etiology. Has never had EGD. Last colonoscopy done in [address] Still with findings of colon polyps, she was due for repeat colonoscopy in August but has been unable to go. She thinks family history significant for "stomach" cancer, her grandmother. Denies ETOH, smoking, NSAID use. (Nkechi Ly) PFSH Past Medical History Melanoma Metastasis to lung and liver History of PE and DVT Hypothyroidism DM Past Surgical History Hysterectomy Umbilical hernia repair Hip replacement Lesions removed from vulva Bronchoscopy Colonoscopy Surgical resection of melanoma with lymph node resection (Nkechi Ly) Coded Allergies: No Known Allergies (Verified Allergy, Unknown, 08/05/17) Social History Denies ETOH Quit smoking 30 years ago Denies illicit drug use Lives alone (Nkechi Ly) Review of Systems Gastrointestinal: COMPLAINS OF: Abdominal pain, Nausea, Heartburn, DENIES: Black stools, Bloody stools, Constipation, Diarrhea, Vomiting, Difficulty Swallowing, Odynophagia, Swelling of Abdomen, Hematemesis (Nkechi Ly) GI Exam Vitals I&O Vital Signs Date Time Temp Pulse Resp B/P (MAP) Pulse Ox O2 Delivery O2 Flow Rate FiO2 08/06/17 08:00 81 08/06/17 08:00 98.2 79 18 137/63 (87) 94 08/06/17 04:40 98.0 75 19 120/67 (84) 94 08/06/17 04:00 70 08/06/17 02:20 77 08/05/17 22:30 98.0 84 18 128/65 (86) 94 08/05/17 21:56 75 20 124/68 (86) 98 08/05/17 21:26 79 20 126/68 (87) 96 08/05/17 19:21 91 20 115/73 (87) 93 08/05/17 19:21 20 08/05/17 18:29 81 18 148/77 (100) 95 Room Air 08/05/17 17:10 73 18 140/65 (90) 94 Room Air 08/05/17 16:08 18 08/05/17 15:59 81 18 135/74 (94) 95 Room Air 08/05/17 14:43 100 Room Air 08/05/17 13:55 98.3 90 18 145/67 (93) 93 I/O 08/05/17 08/05/17 08/05/17 08/06/17 08/06/17 08/06/17 07:00 15:00 23:00 07:00 15:00 23:00 Intake Total 250 ml 0 ml Balance 250 ml 0 ml Intake Oral 0 ml IV Total 250 ml # Voids 1 2 # Bowel Movements 0 Imaging Last Impressions Abdomen/Pelvis CT 08/05/17 8994 Signed Impressions: CONCLUSION: 1. 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 There are pulmonary and hepatic metastases again noted. 2. New heterogeneous marked enlargement of the right adrenal gland typical of acute or subacute adrenal hemorrhage. 3. Possible pancreatitis and/or duodenitis in the proper clinical setting. 4. Colon and appendix within normal limits. Laboratory Test 08/05/17 15:00 08/05/17 15:15 White Blood Count 11.8 TH/MM3 Red Blood Count 3.63 MIL/MM3 Hemoglobin 10.4 GM/DL Hematocrit 30.7 % Mean Corpuscular Volume 84.6 FL Mean Corpuscular Hemoglobin 28.7 PG Mean Corpuscular Hemoglobin Concent 33.9 % Red Cell Distribution Width 13.4 % Platelet Count 505 TH/MM3 Mean Platelet Volume 6.9 FL Neutrophils (%) (Auto) 76.2 % Lymphocytes (%) (Auto) 14.7 % Monocytes (%) (Auto) 8.0 % Eosinophils (%) (Auto) 0.9 % Basophils (%) (Auto) 0.2 % Neutrophils # (Auto) 9.1 TH/MM3 Lymphocytes # (Auto) 1.7 TH/MM3 Monocytes # (Auto) 0.9 TH/MM3 Eosinophils # (Auto) 0.1 TH/MM3 Basophils # (Auto) 0.0 TH/MM3 CBC Comment DIFF FINAL Differential Comment Prothrombin Time 20.7 SEC Prothromb Time International Ratio 2.0 RATIO Activated Partial Thromboplast Time 37.5 SEC Blood Urea Nitrogen 11 MG/DL Creatinine 0.53 MG/DL Random Glucose 91 MG/DL Total Protein 7.0 GM/DL Albumin 2.8 GM/DL Calcium Level 8.6 MG/DL Alkaline Phosphatase 86 U/L Aspartate Amino Transf (AST/SGOT) 13 U/L Alanine Aminotransferase (ALT/SGPT) 16 U/L Total Bilirubin 0.5 MG/DL Sodium Level 137 MEQ/L Potassium Level 4.0 MEQ/L Chloride Level 102 MEQ/L Carbon Dioxide Level 27.8 MEQ/L Anion Gap 7 MEQ/L Estimat Glomerular Filtration Rate 114 ML/MIN Lipase 173 U/L Urine Collection Type CLEAN CATCH Urine Color YELLOW Urine Turbidity SL CLOUDY Urine pH 6.5 Urine Specific [place] 1.010 Urine Protein 30 mg/dL Urine Glucose (UA) NEG mg/dL Urine Ketones NEG mg/dL Urine Occult Blood LARGE Urine Nitrite NEG Urine Bilirubin NEG Urine Urobilinogen 0.2 MG/DL Urine Leukocyte Esterase NEG Urine RBC 50-99 /hpf Urine WBC 0-2 /hpf Urine Squamous Epithelial Cells 6-8 /hpf Urine Transitional Epithelial Cells 0-5 /hpf Urine Amorphous Sediment MOD Microscopic Urinalysis Comment CULT NOT INDICATED Urine Collection Time 1515 Physical Examination HEENT: Normocephalic; atraumatic CHEST: Even/unlabored CARDIAC: Irregular, rate controlled ABDOMEN: Soft, nondistended, RUQ tenderness, mild RLQ tenderness with deep palpation, bowel sounds active SKIN: Normal; no rash; no jaundice. AGRICULTURAL EQUIPMENT SALES MANAGER: Alert and oriented times three. (Nkechi Ly) Assessment and Plan Plan Assessment: - RUQ pain, tenderness Pt reports pain for the past 4-5 days, intermittent, becoming more frequent, initially described as sharp, now aching. Denies relation with PO intake, bowel movements. Also having some mild RLQ tenderness with deep palpation. Denies constipation, diarrhea, blood in stool. Has never had EGD. Last colonoscopy was in [address] Still, reports of colon polyps was due for repeat procedure in August, has not had time. CT abdomen and pelvis WO IV contrast (08/05) --> Possible pancreatitis and/or duodenitis in the proper clinical setting. Colon and appendix WNL. Pt reports one history of pancreatitis in 2012, denies ETOH, she is unsure of etiology. Of note, denies previous cholecystectomy. Lipase currently WNL - Melanoma S/P surgical resection and lymph node resection with metastasis to the liver and lung- pt followed by oncologist Dr. Sadler, planning on starting immunotherapy this Sunday. Denies previous chemo or radiation - History of PE and DVT- new onset A-fib RVR during recent bronchoscopy- has Holter monitor- on Coumadin- INR was 7.9 a week ago- has been off Coumadin since, INR currently 2 - New heterogeneous marked enlargement of the right adrenal gland typical of acute or subacute adrenal hemorrhage on CT- per attending Plan: EGD today Obtain consent Keep NPO Further recommendations based on findings of above and clinical course Pt has been seen and examined by myself and Dr. Salazar and this note is written on hsi behalf (Nkechi Ly) Physician Comments Seen with Nkechi plan as above, consent obtained for EGD today. Further recommendations to follow based on findings. Thank you for the consult. (Linh Salazar MD) Nkechi Ly Aug 06, 2017 11:18 Linh Salazar MD Aug 06, 2017 12:39
[2017-08-06] MEDS ORDERED: LIDOCAINE HCL 1% PF 5 ML SYRINGE OTHER ONE (12:00)
[2017-08-06] MEDS ORDERED: PROPOFOL 200 MG/20 ML AMP IV ONE (12:00)
--- NOTE | 2017-08-06 13:11 | GIPROC ---
[facility] [address] [facility]. [facility], [address] EGD PROCEDURE REPORT EXAM DATE: 08/06/2017 PATIENT NAME: Bonnie Marie V MR #: [id number] BIRTHDATE: 1950 ATTENDING: Linh Salazar MD ORDER #: [id number] SPECIAL EDUCATION KINDERGARTEN TEACHER: Lawrence Mcqueen and Edie Olguin STATUS: inpatient INDICATIONS: The patient is a 67 yr old female here for an EGD due to abdominal pain in the right upper quadrant PROCEDURE PERFORMED: EGD w/ biopsy MEDICATIONS: None and Per Anesthesia. TOPICAL ANESTHETIC: none CONSENT: The patient understands the risks and benefits of the procedure and understands that these risks include, but are not limited to: sedation, allergic reaction, infection, perforation and/or bleeding. Alternative means of evaluation and treatment include, among others: physical exam, x-rays, and/or surgical intervention. The patient elects to proceed with this endoscopic procedure. medical equipment was checked for proper function. Hand hygiene and appropriate measures for infection prevention was taken. After the risks, benefits and alternatives of the procedure were thoroughly explained, Informed consent was verified, confirmed and timeout was successfully executed by the treatment team. The patient was anesthetized with topical anesthesia and the Pentax [id number] endoscope was introduced through the mouth and advanced to the second portion of the duodenum. Retroflexion was performed and was normal The gastroscope was then slowly withdrawn and removed. ESOPHAGUS: There was LA Class A esophagitis noted. A medium sized hiatal hernia was noted. Multiple biopsies were performed. Sample sent for histology. STOMACH: There was mild gastritis in the gastric antrum. DUODENUM: The duodenal mucosa appeared normal in the bulb and second portion of the duodenum. ADVERSE EVENTS: There were no complications. IMPRESSIONS: 1. There was LA Class A esophagitis noted 2. Medium sized hiatal hernia 3. There was mild gastritis in the gastric antrum 4. Normal duodenal mucosa in the bulb and second portion of the duodenum 5. Retroflexion was performed and was normal RECOMMENDATIONS: 1. Await biopsy results. Biopsy results will not be ready for 7-10 days. If you don't hear from us in two weeks, call our office for biopsy results. 2. Continue PPI PATIENT CONDITION: stable DISPOSITION: Observation REPEAT EXAM: NONE Linh Salazar MD eSigned: Linh Salazar MD 08/06/2017 1:10 PM cc: PATIENT NAME: Bonnie Marie V MR#: [id number]
[2017-08-06] MEDS: LOW DOSE INSULIN NOVOLOG SUPPLEMENTAL SCALE SQ SCH ×2 (16:42→21:00)
[2017-08-06 16:51] LABS: AUTOMATED NEUTROPHIL # 6.7 TH/MM3 (1.8-7.7); BASOPHIL % 0.3 % (0.0-2.0); EOSINOPHIL # 0.1 TH/MM3 (0-0.4); EOSINOPHIL % 1.3 % (0.0-4.0); HEMOGLOBIN 9.9 GM/DL (11.6-15.3); LYMPH % 14.3 % (9.0-44.0); LYMPHOCYTE # 1.3 TH/MM3 (1.0-4.8); MEAN CELL VOLUME 84.6 FL (80.0-100.0); MEAN CORPUSCULAR HEMOGLOBIN 28.8 PG (27.0-34.0); MEAN CORPUSCULAR HGB CONC 34.1 % (32.0-36.0); MEAN PLATELET VOLUME 6.8 FL (7.0-11.0); MONO % 8.9 % (0.0-8.0); MONOCYTE # 0.8 TH/MM3 (0-0.9); NEUT % 75.2 % (16.0-70.0); PLATELET COUNT 428 TH/MM3 (150-450); RED BLOOD COUNT 3.43 MIL/MM3 (4.00-5.30); RED CELL DISTRIBUTION WIDTH 14.5 % (11.6-17.2); WHITE BLOOD COUNT 8.9 TH/MM3 (4.0-11.0)
[2017-08-06 17:10] LABS: ALBUMIN 2.5 GM/DL (3.4-5.0); AST (GOT) 16 U/L (15-37); BICARBONATE 25.2 MEQ/L (21.0-32.0); BLOOD UREA NITROGEN 10 MG/DL (7-18); CALCIUM 8.2 MG/DL (8.5-10.1); CHLORIDE 104 MEQ/L (98-107); CREATININE 0.74 MG/DL (0.50-1.00); GLOMERULAR FILTRATION RATE 78 ML/MIN (>89); GLUCOSE,RANDOM 132 MG/DL (74-106); SODIUM (NA) 140 MEQ/L (136-145)
[2017-08-06 17:12] LABS: ALKALINE PHOSPHATASE 79 U/L (45-117); ALT (GPT) 12 U/L (10-53); TOTAL BILIRUBIN ADULT 0.4 MG/DL (0.2-1.0); TOTAL PROTEIN 6.2 GM/DL (6.4-8.2)
[2017-08-06] MEDS: ZOLPIDEM TARTRATE 5 MG TAB PO PRN (22:38)
[2017-08-07] VITALS: BP 134/71; PULSE 72; RESP 18; TEMP 98.4; O2SAT 94
[2017-08-07 03:41] VITALS: PULSE 71
[2017-08-07 04:00] VITALS: BP_SYST 100; PULSE 71; RESP 18; TEMP 97.8; O2SAT 19
[2017-08-07 08:00] VITALS: BP 154/71; PULSE 85; RESP 19; TEMP 98; O2SAT 94
[2017-08-07] MEDS: LOW DOSE INSULIN NOVOLOG SUPPLEMENTAL SCALE SQ SCH (08:00)
[2017-08-07] MEDS: PRAVASTATIN SOD 20 MG TAB PO SCH (09:06)
[2017-08-07] MEDS: FLUoxetine HCL 20 MG CAP PO SCH (09:06)
[2017-08-07] MEDS: DILTIAZEM-CD 180 MG CAP ER PO SCH (09:06)
[2017-08-07] MEDS: THYROID 30 MG TAB PO SCH (09:06)
[2017-08-07] MEDS: PANTOPRAZOLE SOD 40 MG DELAYED RELEASE TAB PO SCH (09:06)
[2017-08-07] MEDS: SODIUM CHLORIDE 0.9% FLUSH 10 ML FLUSH IV FLUSH SCH (09:07)
[2017-08-07] MEDS: LACTATED RINGER'S 1000 ML INJ 1,000 ML IV SCH (09:11)
--- NOTE | 2017-08-07 09:56 | HHI.GIFU ---
Subjective Remarks Pt in bedside chair States some nausea this morning but felt much better after eating RUQ pain is mild Reports overall she is feeling much better and hopes to make it to her oncology appt tomorrow (Nkechi Ly) Objective Vitals I&O Vital Signs Date Time Temp Pulse Resp B/P (MAP) Pulse Ox O2 Delivery O2 Flow Rate FiO2 08/07/17 08:00 98.0 85 19 154/71 (98) 94 08/07/17 04:00 97.8 71 18 100/ 19 08/07/17 03:41 71 08/07/17 00:00 98.4 72 18 134/71 (92) 94 08/06/17 23:48 72 08/06/17 20:00 98.5 80 18 139/65 (89) 95 08/06/17 19:55 78 08/06/17 16:29 97.9 76 16 136/72 (93) 93 08/06/17 13:17 73 18 114/54 (74) 97 08/06/17 12:31 98.1 77 18 144/68 (93) 93 I/O 08/06/17 08/06/17 08/06/17 08/07/17 08/07/17 08/07/17 07:00 15:00 23:00 07:00 15:00 23:00 Intake Total 0 ml 400 ml 1000 ml Balance 0 ml 400 ml 1000 ml Intake Oral 0 ml IV Total 1000 ml Other 400 ml # Voids 2 4 1 4 # Bowel Movements 0 1 Laboratory Laboratory Tests Test 08/06/17 16:03 White Blood Count 8.9 Red Blood Count 3.43 Hemoglobin 9.9 Hematocrit 29.0 Mean Corpuscular Volume 84.6 Mean Corpuscular Hemoglobin 28.8 Mean Corpuscular Hemoglobin Concent 34.1 Red Cell Distribution Width 14.5 Platelet Count 428 Mean Platelet Volume 6.8 Neutrophils (%) (Auto) 75.2 Lymphocytes (%) (Auto) 14.3 Monocytes (%) (Auto) 8.9 Eosinophils (%) (Auto) 1.3 Basophils (%) (Auto) 0.3 Neutrophils # (Auto) 6.7 Lymphocytes # (Auto) 1.3 Monocytes # (Auto) 0.8 Eosinophils # (Auto) 0.1 Basophils # (Auto) 0.0 CBC Comment DIFF FINAL Differential Comment Blood Urea Nitrogen 10 Creatinine 0.74 Random Glucose 132 Total Protein 6.2 Albumin 2.5 Calcium Level 8.2 Alkaline Phosphatase 79 Aspartate Amino Transf (AST/SGOT) 16 Alanine Aminotransferase (ALT/SGPT) 12 Total Bilirubin 0.4 Sodium Level 140 Potassium Level 3.8 Chloride Level 104 Carbon Dioxide Level 25.2 Anion Gap 11 Estimat Glomerular Filtration Rate 78 Imaging Last Impressions Abdomen/Pelvis CT 08/05/17 1437 Signed Impressions: CONCLUSION: 1. 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 There are pulmonary and hepatic metastases again noted. 2. New heterogeneous marked enlargement of the right adrenal gland typical of acute or subacute adrenal hemorrhage. 3. Possible pancreatitis and/or duodenitis in the proper clinical setting. 4. Colon and appendix within normal limits. Physical Exam HEENT: Normocephalic; atraumatic CHEST: Even/unlabored CARDIAC: RRR ABDOMEN: Soft, nondistended, mild RUQ tenderness, bowel sounds active EXTREMITIES: No clubbing, cyanosis, or edema. SKIN: Normal; no rash; no jaundice. HYDROELECTRIC MACHINERY MECHANIC: Alert and oriented times three. (Nkechi Ly) Assessment and Plan Plan Assessment: - RUQ pain, tenderness Pt reports pain for the past 4-5 days, intermittent, becoming more frequent, initially described as sharp, now aching. Denies relation with PO intake, bowel movements. Also having some mild RLQ tenderness with deep palpation. Denies constipation, diarrhea, blood in stool. Has never had EGD. Last colonoscopy was in [address] Still, reports of colon polyps was due for repeat procedure in August, has not had time. CT abdomen and pelvis WO IV contrast (08/05) --> Possible pancreatitis and/or duodenitis in the proper clinical setting. Colon and appendix WNL. Pt reports one history of pancreatitis in 2012, denies ETOH, she is unsure of etiology. Of note, denies previous cholecystectomy. Lipase currently WNL - Melanoma S/P surgical resection and lymph node resection with metastasis to the liver and lung- pt followed by oncologist Dr. Sadler, planning on starting immunotherapy this Sunday. Denies previous chemo or radiation - History of PE and DVT- new onset A-fib RVR during recent bronchoscopy- has Holter monitor- on Coumadin- INR was 7.9 a week ago- has been off Coumadin since, INR currently 2 - New heterogeneous marked enlargement of the right adrenal gland typical of acute or subacute adrenal hemorrhage on CT- per attending (08/07) Pt S/P EGD yesterday, reports symptoms improving today. Some mild nausea this morning but relief after eating breakfast. RUQ pain is mild but overall improving. She hopes to be discharged to make it to her oncology appt tomorrow. EGD --> Class A esophagitis, medium sized hiatal hernia, mild gastritis in the gastric antrum, normal duodenal mucosa in the bulb and second portion of the duodenum Plan: Continue Protonix OK to restart anticoagulation from a GI standpoint GI will sign off Have pt follow up with GI after DC Pt has been seen and examined by myself and Dr. Salazar and this note is written on hsi behalf (Nkechi Ly) Physician Comments Agree with above assessment and plan, await biopsy result. Please notify us if needed again. (Linh Salazar MD) Nkechi Ly Aug 07, 2017 09:56 Linh Salazar MD Aug 07, 2017 12:15
[2017-08-07] MEDS ORDERED: PANT40TA3 PO (10:32)
--- NOTE | 2017-08-07 10:37 | HHI.DS ---
Discharge Summary Admission Date Aug 05, 2017 at 18:16 Admitting Diagnosis DUODENITIS, POSSIBLE SUBACUTE ADRENAL HEMORRHAGE ON COUMADIN Brief History Patient presents for RLQ pain she states it has been present for several weeks , It comes and goes. She denies any nausea, vomiting or diarrhea associated with pain. She is under care of oncology Dr Ortega for melanoma, Lung ca with mets. 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 CBC/BMP: 08/06/17 1603 08/06/17 1603 Significant Findings Laboratory Tests Test 08/05/17 15:00 08/05/17 15:15 08/06/17 16:03 White Blood Count 11.8 TH/MM3 (4.0-11.0) Red Blood Count 3.63 MIL/MM3 (4.00-5.30) 3.43 MIL/MM3 (4.00-5.30) Hemoglobin 10.4 GM/DL (11.6-15.3) 9.9 GM/DL (11.6-15.3) Hematocrit 30.7 % (35.0-46.0) 29.0 % (35.0-46.0) Platelet Count 505 TH/MM3 (150-450) Mean Platelet Volume 6.9 FL (7.0-11.0) 6.8 FL (7.0-11.0) Neutrophils (%) (Auto) 76.2 % (16.0-70.0) 75.2 % (16.0-70.0) Neutrophils # (Auto) 9.1 TH/MM3 (1.8-7.7) Prothrombin Time 20.7 SEC (9.8-11.6) Activated Partial Thromboplast Time 37.5 SEC (24.3-30.1) Albumin 2.8 GM/DL (3.4-5.0) 2.5 GM/DL (3.4-5.0) Aspartate Amino Transf (AST/SGOT) 13 U/L (15-37) Urine Protein 30 mg/dL (NEG-TRACE) Urine Occult Blood LARGE (NEG) Urine RBC 50-99 /hpf (0-3) Urine Squamous Epithelial Cells 6-8 /hpf (0-5) Monocytes (%) (Auto) 8.9 % (0.0-8.0) Random Glucose 132 MG/DL (74-106) Total Protein 6.2 GM/DL (6.4-8.2) Calcium Level 8.2 MG/DL (8.5-10.1) Estimat Glomerular Filtration Rate 78 ML/MIN (>89) Hospital Course Abdomen CT- 1. 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 There are pulmonary and hepatic metastases again noted. 2. New heterogeneous marked enlargement of the right adrenal gland typical of acute or subacute adrenal hemorrhage. 3. Possible pancreatitis and/or duodenitis in the proper clinical setting. 4. Colon and appendix within normal limits. EGD on 08/06 showing Class A esophagitis, medium sized hiatal hernia, mild gastritis in the gastric antrum, normal duodenal mucosa in the bulb and second portion of the duodenum DC home with PPI Pt Condition on Discharge: Stable Discharge Disposition: Discharge Home Discharge Instructions DIET: Follow Instructions for: As Tolerated, No Restrictions Speech Therapy-Diet Recommenda: Regular Activities you can perform: Regular-No Restrictions Follow up Referrals: PCP Follow-up with Dr Sheldon F/U Sunday next week, for INR check New Medications: Pantoprazole (Pantoprazole) 40 Mg Tab 40 MG PO DAILY for gastritis, #30 TAB Continued Medications: Acetaminophen (Mapap) 500 Mg Tab 500 MG PO Q4-6H PRN for PAIN, TAB 0 Refills Diltiazem CD 24 HR (Cardizem CD 24 HR) 180 Mg Caper 180 MG PO DAILY for cardiac, #30 CAP Fluoxetine (Fluoxetine) 20 Mg Tab 20 MG PO DAILY, #30 TAB 0 Refills Metformin (Metformin) 1,000 Mg Tab 1000 MG PO DAILY for Blood Sugar Management, #30 TAB 0 Refills With a meal Simvastatin (Simvastatin) 10 Mg Tab 10 MG PO DAILY for Cholesterol Management, #30 TAB 0 Refills Thyroid ([place] Boss Thyroid) 30 Mg Tab 30 MG PO DAILY for Thyroid Supplement, #30 TAB 0 Refills Warfarin (Warfarin) 3 Mg Tab 3.5 MG PO DAILY for Blood Clot Prevention, #30 TAB 0 Refills Additional Information Restart Coumadin 2mg daily. Follow up in office Sunday to have INR checked. This was discussed with patient at bedside with verbal understanding. Olesya Lawrence Aug 07, 2017 10:37
== END 2017-08-07 12:49 | disposition home or self-care (01) ==
LOC: PHED 13:47 → PHEDA 18:16 → N05A 22:22
PROVIDERS: ADMIT Family Medicine; ATTEND Family Medicine
DX: R10.31 Right lower quadrant pain (principal); Z96.642 Presence of left artificial hip joint; Z90.710 Acquired absence of both cervix and uterus; Z86.711 Personal history of pulmonary embolism; K44.9 Diaphragmatic hernia without obstruction or gangrene; I10 Essential (primary) hypertension; E11.9 Type 2 diabetes mellitus without complications; E03.9 Hypothyroidism, unspecified; R42 Dizziness and giddiness; M19.90 Unspecified osteoarthritis, unspecified site; F32.9 Major depressive disorder, single episode, unspecified; Z85.820 Personal history of malignant melanoma of skin; Z85.42 Personal history of malignant neoplasm of other parts of uterus; Z79.899 Other long term (current) drug therapy; Z79.01 Long term (current) use of anticoagulants; Z79.84 Long term (current) use of oral hypoglycemic drugs; D72.828 Other elevated white blood cell count; D64.9 Anemia, unspecified; K29.80 Duodenitis without bleeding; R91.8 Other nonspecific abnormal finding of lung field; C34.90 Malignant neoplasm of unspecified part of unspecified bronchus or lung; C78.7 Secondary malignant neoplasm of liver and intrahepatic bile duct; C78.00 Secondary malignant neoplasm of unspecified lung; I48.0 Paroxysmal atrial fibrillation; Z87.891 Personal history of nicotine dependence; K20.9 Esophagitis, unspecified; K29.70 Gastritis, unspecified, without bleeding
CPT/HCPCS: 00731; 43239; 74176; 80053; 81001; 82948; 83690; 85025; 85610; 85730; 88305; 96361; 96374; 96375; 99285; G0378; J2270; J2765; J7030; J7120